=== PATIENT | female | born 1960 | race Caucasian/White ===

== ENCOUNTER 2018-02-18 16:55 | Inpatient (IN) ==
--- NOTE | 2018-02-18 18:18 | Emergency Department Note ---
Disposition Clinical Impression: Upper GI bleed Disposition: Still a Patient Condition: Fair Time of Disposition: 19:03 General Adult HPI - General Chief complaint: ED Recheck/Abnormal Lab/Rx Stated complaint: Needs Blood Transfusion Time Seen by Provider: 02/18/18 17:59 Nursing Notes Reviewed: Yes Vital Signs Reviewed: Yes - History of Present Illness HPI Narrative: 57 year old female was sent to ED for Hb 5.1. Patient states she's been having black stools for 1 month. Patient also complains of difficulty breathing, worse in past 1 week. Shortness of breath is exacerbated by activity. Patient has been taking IBU 600mg TID for bilateral ankle fractures. Admits dizziness with sitting up. Denies abdominal pain, nausea/vomiting, hematuria, hemoptysis, fever/chills, chest pain. Medical history of COPD not oxygen dependent, GERD on omeprazole, HLD, anxi ety/panic attacks, arthritis. Patient does not take blood thinner. Pain Scale: 6 - Related Data Home Medications Medication Instructions Recorded Confirmed ALPRAZolam [Xanax 0.5 MG Tablet] 0.5 mg PO TID PRN 08/06/17 11/12/17 Albuterol Sulfate [Ventolin Hfa] 2 puff IH Q4H PRN 08/06/17 11/12/17 Atorvastatin Calcium [Lipitor] 20 mg PO DAILY 08/06/17 11/12/17 Latanoprost [Xalatan] 1 drop BOTH EYES HS 08/06/17 11/12/17 Loratadine [Claritin] 10 mg PO DAILY 08/06/17 11/12/17 Omeprazole [PriLOSEC] 20 mg PO DAILY 08/06/17 11/12/17 Tiotropium [place] [Spiriva 2 puff IH DAILY 08/06/17 11/12/17 Respimat] Montelukast [Singulair] 10 mg PO HS 11/12/17 11/12/17 Previous Rx's Medication Instructions Recorded Doxycycline 100 mg PO ONCE #14 capsule 11/12/17 Ondansetron ODT [Zofran ODT] 4 mg SL Q8HR PRN #15 tab.rapdis 11/12/17 Oxycodone HCl/Acetaminophen 1 each PO Q4H PRN 5 Days #30 tablet 11/12/17 [Percocet 5-325 mg Tablet] Rivaroxaban [Xarelto] 10 mg PO DAILY #20 tablet 11/12/17 Allergies Allergy/AdvReac Type Severity Reaction Status Date / Time No Known Allergies Allergy Verified 11/12/17 13:51 Constitutional: Denies: fever, chills Eyes: Denies: eye pain, eye discharge ENT ED: Denies: ear pain, throat pain Cardiovascular: Denies: chest pain, palpitations Respiratory: Reports: cough, dyspnea Gastrointestinal: Denies: abdominal pain, nausea Genitourinary: Denies: urgency, dysuria Musculoskeletal: Denies: back pain, neck pain Integumentary: Denies: rash, abrasion Neurological: Denies: headache, weakness Past Medical History - Past Medical History Medical history: Reports: arthritis, seizures, other Surgical history: Reports: cholecystectomy, colectomy, hysterectomy, DAMARIS/BSO, other Psychiatric history: Reports: no psych history - Social History Smoking Status: Current every day smoker Smokeless Tobacco Status: No Alcohol use: Reports: none Drug use: Reports: marijuana Physical Exam - General General appearance: alert, in no apparent distress - Head Head exam: atraumatic, normocephalic - Eye Eye exam: Present: PERRL, EOMI. Absent: scleral icterus, conjunctival injection - ENT ENT exam: normal oropharynx, mucous membranes moist - Neck Neck exam: Present: normal inspection - Chest Chest inspection: Present: normal inspection, symmetric chest wall rise - Respiratory Respiratory exam: Present: normal lung sounds bilaterally. Absent: respiratory distress - Cardiovascular Cardiovascular exam: Present: regular rate, normal rhythm - Abdominal Exam Abdominal exam: Present: soft, Non-Tender, normal bowel sounds. Absent: distention, guarding, rebound, rigidity - Extremities Exam Extremities exam: Present: normal inspection. Absent: tenderness, pedal edema, joint swelling - Neurological Exam Neurological exam: Present: alert, oriented X3 - Skin Skin exam: Present: warm, dry, intact, pallor Course Course Narrative: 57 year old female presents for black stools for 1 month and Hb 5.1. Associated symptoms of dyspnea on exertion and dizziness with sitting up. Been taking IBU 600mg TID for bilateral ankle fracture pain. Patient is alert and oriented. Patient is tachycardic at 109. Other vitals are WNL. On exam, patient appears pale and weak. Abdominal is soft and nontender. There are very mild bibibasilar expiratory wheezes on lung auscultation. Will check labwork, type and screen, and hemoccult. Will provide 2 units RBC and start PPI. - Reevaluation(s) Reevaluation #1: Will sign out to night team. Time: 19:03 Vital Signs Temperature 98.3 F 02/18/18 17:19 Pulse Rate 109 02/18/18 17:19 Respiratory Rate 20 02/18/18 17:19 Blood Pressure 101/69 02/18/18 17:19 O2 Sat by Pulse Oximetry 100 02/18/18 17:19 Temperature 98.3 F 02/18/18 17:19 Pulse Rate 109 02/18/18 17:19 Respiratory Rate 20 02/18/18 17:19 Blood Pressure 101/69 02/18/18 17:19 O2 Sat by Pulse Oximetry 100 02/18/18 17:19 Oxygen Delivery Oxygen Delivery Room Air Medical Decision Making - EKG Data EKG #1 EKG attestation: Yes I reviewed and interpreted this EKG. EKG results narrative: EKG 02/18/18 18:08. Sinus rhythm. Heart rate 104. No ST segment elevation or dep ression. No significant change from prior EKG 11/06/13.
[2018-02-18] MEDS ORDERED: Pantoprazole 40 MG VIAL IVP ONE (18:27)
[2018-02-18] MEDS ORDERED: *HR* Morphine 2 MG/ML SYRINGE IVP ONE (18:34)
--- NOTE | 2018-02-18 18:43 | Emergency Department Note ---
START Narrative - START START: I, Aquiles Webb, examined this patient and my medical decision-making was reviewed with the [employer]ARE[employer]ING SUPERVISOR/PA/Advanced Practice Nurse/Resident Physician. I agree with the documented findings, disposition and treatment plan as described except to the extent set forth below. 57-year-old female presents emergency Department with concerns of anemia. Patient has been having melena over the past few weeks, has been taking ibuprofen at home for bilateral ankle pain. Patient has become short of breath with exertion. Hemoglobin was 5.1 on palpation testing. We will obtain laboratory evaluation, type and screen and provide transfusion. Patient will likely be admitted to the hospital for further evaluation.
[2018-02-18 19:19] LABS: Basophils % 0.1 %; Eosinophils # 0.5 K/mcL (0.0-0.6); Eosinophils % 4.6 %; Hematocrit 16.4 % (35.3-44.9); Immature Granulocytes % 1.1 % (0-4); Lymphocytes # 2.5 K/mcL (0.6-4.6); Lymphocytes % 22.4 %; Mean Corpuscular HGB Conc 28.7 g/dL (31.6-35.5); Mean Corpuscular Volume 76.6 fL (83.0-100.0); Monocytes % 7.7 %; Neutrophils # 7.1 K/mcL (1.6-8.9); Nucleated Red Blood Cells 0.5 /100 WBC (0); Platelet Count 453 K/mcL (140-400); Red Blood Count 2.14 M/mcL (3.82-4.97); Red Cell Distribution Width 18.5 % (11.5-14.5); Segmented Neutrophils % 64.1 %
[2018-02-18 19:20] LABS: Monocytes # 0.9 K/mcL (0.0-1.3)
[2018-02-18 19:24] LABS: Hemoglobin 4.7 g/dL (11.5-15.4)
[2018-02-18 19:27] LABS: Prothrombin Time 10.8 Seconds (9.4-12.1)
[2018-02-18] MEDS: Pantoprazole 40 MG VIAL IVP ONE ×2 (19:33→19:40)
[2018-02-18] MEDS: Pantoprazole 40 MG in 0.9 % Sodium Chloride Mini Bag 100 ML IVC SCH (19:33)
[2018-02-18 19:35] LABS: Calcium 8.7 mg/dL (8.6-10.3); Potassium 4.1 mEq/L (3.5-5.1)
[2018-02-18 19:41] LABS: Hypochromasia Present (Not Present)
--- NOTE | 2018-02-18 19:43 | Emergency Department Note ---
Disposition Clinical Impression: Upper GI bleed, Anemia due to GI blood loss Disposition: Admitted As Inpatient Condition: Fair Referrals: Cally Orr [Primary Care Provider] - Forms: ED Satisfaction Letter Time of Disposition: 20:33 General Adult HPI - General Chief complaint: ED Recheck/Abnormal Lab/Rx Stated complaint: Needs Blood Transfusion Time Seen by Provider: 02/18/18 17:59 Source: patient Limitations: no limitations Nursing Notes Reviewed: Yes Vital Signs Reviewed: Yes - History of Present Illness HPI Narrative: Patient was signed out to me by daytime physicians Dr. Orr and Dr. Webb pending lab results and final disposition. Please see their note for further details. Pain Scale: 0 - Related Data Home Medications Medication Instructions Recorded Confirmed ALPRAZolam [Xanax 0.5 MG Tablet] 0.5 mg PO BID 08/06/17 02/18/18 Albuterol Sulfate [Ventolin Hfa] 2 puff IH Q4H PRN 08/06/17 02/18/18 Atorvastatin Calcium [Lipitor] 20 mg PO DAILY 08/06/17 02/18/18 Loratadine [Claritin] 10 mg PO DAILY 08/06/17 02/18/18 Omeprazole [PriLOSEC] 20 mg PO DAILY 08/06/17 02/18/18 Tiotropium [place] [Spiriva 2 puff IH DAILY 08/06/17 02/18/18 Respimat] Montelukast [Singulair] 10 mg PO HS 11/12/17 02/18/18 ALPRAZolam [Xanax 0.5 MG Tablet] 1 mg PO HS 02/18/18 02/18/18 PARoxetine HCl [Paroxetine HCl] 20 mg PO DAILY 02/18/18 02/18/18 Allergies Allergy/AdvReac Type Severity Reaction Status Date / Time No Known Allergies Allergy Verified 11/12/17 13:51 All systems ED: reviewed and negative except as stated. Constitutional: Denies: fever, chills Eyes: Denies: eye pain, eye discharge ENT ED: Denies: ear pain, throat pain Cardiovascular: Denies: chest pain, palpitations Respiratory: Reports: cough, dyspnea Gastrointestinal: Denies: abdominal pain, nausea Genitourinary: Denies: urgency, dysuria Musculoskeletal: Denies: back pain, neck pain Integumentary: Denies: rash, abrasion Neurological: Denies: headache, weakness Past Medical History - Past Medical History Medical history: Reports: arthritis, seizures, other Surgical history: Reports: cholecystectomy, colectomy, hysterectomy, DAMARIS/BSO, other Psychiatric history: Reports: no psych history - Social History Smoking Status: Current every day smoker Smokeless Tobacco Status: No Alcohol use: Reports: none Drug use: Reports: marijuana Physical Exam - General Limitations: no limitations General appearance: alert, in no apparent distress Course Course Narrative: Patient was signed out to me by daytime physicians Dr. Orr and Dr. Webb pending lab results and final disposition. Please see their note for further details. Anu is a 57-year-old female who presents emergency department with a hemoglobin reportedly 5.1. She states she is been experiencing black stools for about a month. She is denying any other complaints such as abdominal pain nausea vomiting. She admits to taking ibuprofen overdose on a daily basis for her arthritis recently has been taking 600 mg ibuprofen 3 times a day due to her recent ankle fracture. She admits to dyspnea on exertion. She denies any syncope but does reports some lightheadedness. Denies any chest pain. She denies a history of cardiac ischemic disease. No history of blood transfusion. No other recent illnesses. On evaluation here patient appears in no acute distress. He is mildly tachycardic 109. She appears very pale with pale conjunctiva. Her stool hemoccult is positive and Hgb here is 4.7. At this time patient will receive 2 units blood transfusion for G.I. bleed anemia and will be admitted for further evaluation and treatment. She has been initiated on PPI infusion therapy. Patient gave informed consent for blood transfusion ricin benefits were discussed with the patient. - Consultations Consultation #1: Spoke with on-call hospitalist denise Bolton to admit for GI bleed anemia. No further orders at this time Time: 21:01 Vital Signs Temperature 98.3 F 02/18/18 17:19 Pulse Rate 109 02/18/18 17:19 Respiratory Rate 20 02/18/18 17:19 Blood Pressure 101/69 02/18/18 17:19 O2 Sat by Pulse Oximetry 100 02/18/18 17:19 Temperature 98.7 F 02/18/18 20:50 Pulse Rate 100 02/18/18 20:50 Respiratory Rate 15 11/06/18 20:50 Blood Pressure 101/75 02/18/18 20:50 O2 Sat by Pulse Oximetry 97 02/18/18 20:14 Oxygen Delivery Oxygen Delivery Room Air Medical Decision Making - MDM Narrative Medical decision making narrative: Patient was discussed with my attending physician who agrees with ED management and final disposition. They independently evaluated the patient. Please refer to their attestation to this encounter for additional information. This note was generated by [employer] voice recognition software and as a result grammatical or spelling errors may occur using this program. - Medical Records Medical records reviewed: Yes I reviewed the patient's medical records. - Lab Data Lab results reviewed: Yes I reviewed the patient's lab results. Result diagrams: 02/18/18 19:02 02/18/18 19:02 Lab Results 02/18/18 02/18/18 02/18/18 Range/Units 19:02 19:02 19:02 WBC 11.0 (4.3-11.1) K/mcL RBC 2.14 L (3.82-4.97) M/mcL Hgb 4.7 L* (11.5-15.4) g/dL Hct 16.4 L (35.3-44.9) % MCV 76.6 L (83.0-100.0) fL MCH 22.0 L (28.0-33.3) pg MCHC 28.7 L (31.6-35.5) g/dL RDW 18.5 H (11.5-14.5) % Plt Count 453 H (140-400) K/mcL MPV 11.0 (9.4-12.4) fL Immature Gran % 1.1 (0-4) % Seg Neutrophils % 64.1 % Lymphocytes % 22.4 % Monocytes % 7.7 % Eosinophils % 4.6 % Basophils % 0.1 % Neutrophils # 7.1 (1.6-8.9) K/mcL Lymphocytes # 2.5 (0.6-4.6) K/mcL Monocytes # 0.9 (0.0-1.3) K/mcL Eosinophils # 0.5 (0.0-0.6) K/mcL Basophils # 0.0 (0.0-0.2) K/mcL Nucleated RBCs/100 WBC 0.5 H (0) /100 WBC Hypochromasia Present A (Not Present) PT (9.4-12.1) Seconds INR Sodium 136 (136-145) mEq/L Potassium 4.1 (3.5-5.1) mEq/L Chloride 107 (98-107) mEq/L Carbon Dioxide 20 L (23-29) mEq/L BUN 16 (6-20) mg/dL Creatinine 1.15 (0.60-1.20) mg/dL Est GFR ( Amer) 59 L (> 60) Est GFR (Non-Af Amer) 48 L (> 60) BUN/Creatinine Ratio 14 (6-26) Glucose 101 (70-105) mg/dL Calculated Osmolality 283 (280-300) Calcium 8.7 (8.6-10.3) mg/dL Stool Occult Bld Scrn (Negative) Blood Type A POSITIVE Antibody Screen NEGATIVE Crossmatch See Detail 02/18/18 02/18/18 Range/Units 19:02 19:02 WBC (4.3-11.1) K/mcL RBC (3.82-4.97) M/mcL Hgb (11.5-15.4) g/dL Hct (35.3-44.9) % MCV (83.0-100.0) fL MCH (28.0-33.3) pg MCHC (31.6-35.5) g/dL RDW (11.5-14.5) % Plt Count (140-400) K/mcL MPV (9.4-12.4) fL Immature Gran % (0-4) % Seg Neutrophils % % Lymphocytes % % Monocytes % % Eosinophils % % Basophils % % Neutrophils # (1.6-8.9) K/mcL Lymphocytes # (0.6-4.6) K/mcL Monocytes # (0.0-1.3) K/mcL Eosinophils # (0.0-0.6) K/mcL Basophils # (0.0-0.2) K/mcL Nucleated RBCs/100 WBC (0) /100 WBC Hypochromasia (Not Present) PT 10.8 (9.4-12.1) Seconds INR 1.0 Sodium (136-145) mEq/L Potassium (3.5-5.1) mEq/L Chloride (98-107) mEq/L Carbon Dioxide (23-29) mEq/L BUN (6-20) mg/dL Creatinine (0.60-1.20) mg/dL Est GFR ( Amer) (> 60) Est GFR (Non-Af Amer) (> 60) BUN/Creatinine Ratio (6-26) Glucose (70-105) mg/dL Calculated Osmolality (280-300) Calcium (8.6-10.3) mg/dL Stool Occult Bld Scrn Positive A (Negative) Blood Type Antibody Screen Crossmatch - EKG Data EKG #1 EKG attestation: Yes I reviewed and interpreted this EKG. EKG results narrative: EKG performed 1808 sinus tachycardia 104 beats permitted with a PVC, normal axis, good R wave progression, no ST elevation or depression, Q waves seen in t he inferior leads that appears consistent with prior EKG. No acute ischemic changes.
--- NOTE | 2018-02-18 19:47 | Emergency Department Note ---
Disposition Clinical Impression: Upper GI bleed, Anemia due to GI blood loss Disposition: Admitted As Inpatient Condition: Fair Referrals: Cally Orr [Primary Care Provider] - Forms: ED Satisfaction Letter General Adult HPI - General Chief complaint: ED Recheck/Abnormal Lab/Rx Stated complaint: Needs Blood Transfusion Time Seen by Provider: 02/18/18 17:59 Source: patient Limitations: no limitations Nursing Notes Reviewed: Yes Vital Signs Reviewed: Yes - History of Present Illness Pain Scale: 0 - Related Data Home Medications Medication Instructions Recorded Confirmed ALPRAZolam [Xanax 0.5 MG Tablet] 0.5 mg PO BID 08/06/17 02/18/18 Albuterol Sulfate [Ventolin Hfa] 2 puff IH Q4H PRN 08/06/17 02/18/18 Atorvastatin [place] [Lipitor] 20 mg PO DAILY 08/06/17 02/18/18 Loratadine [Claritin] 10 mg PO DAILY 08/06/17 02/18/18 Omeprazole [PriLOSEC] 20 mg PO DAILY 08/06/17 02/18/18 Tiotropium [place] [Spiriva 2 puff IH DAILY 08/06/17 02/18/18 Respimat] Montelukast [Singulair] 10 mg PO HS 11/12/17 02/18/18 ALPRAZolam [Xanax 0.5 MG Tablet] 1 mg PO HS 02/18/18 02/18/18 PARoxetine HCl [Paroxetine HCl] 20 mg PO DAILY 02/18/18 02/18/18 Allergies Allergy/AdvReac Type Severity Reaction Status Date / Time No Known Allergies Allergy Verified 11/12/17 13:51 Constitutional: Denies: fever, chills Eyes: Denies: eye pain, eye discharge ENT ED: Denies: ear pain, throat pain Cardiovascular: Denies: chest pain, palpitations Respiratory: Reports: cough, dyspnea Gastrointestinal: Denies: abdominal pain, nausea Genitourinary: Denies: urgency, dysuria Musculoskeletal: Denies: back pain, neck pain Integumentary: Denies: rash, abrasion Neurological: Denies: headache, weakness Past Medical History - Past Medical History Medical history: Reports: arthritis, seizures, other Surgical history: Reports: cholecystectomy, colectomy, hysterectomy, DAMARIS/BSO, other Psychiatric history: Reports: no psych history - Social History Smoking Status: Current every day smoker Smokeless Tobacco Status: No Alcohol use: Reports: none Drug use: Reports: marijuana Physical Exam - General Limitations: no limitations General appearance: alert, in no apparent distress Course Vital Signs Temperature 98.3 F 02/18/18 17:19 Pulse Rate 109 02/18/18 17:19 Respiratory Rate 20 02/18/18 17:19 Blood Pressure 101/69 02/18/18 17:19 O2 Sat by Pulse Oximetry 100 02/18/18 17:19 Temperature 98.7 F 02/18/18 20:50 Pulse Rate 100 02/18/18 20:50 Respiratory Rate 15 02/18/18 20:50 Blood Pressure 101/75 02/18/18 20:50 O2 Sat by Pulse Oximetry 97 02/18/18 20:14 Oxygen Delivery Oxygen Delivery Room Air Medical Decision Making - Lab Data Result diagrams: 02/18/18 19:02 02/18/18 19:02 Lab Results 02/18/18 02/18/18 02/18/18 Range/Units 19:02 19:02 19:02 WBC 11.0 (4.3-11.1) K/mcL RBC 2.14 L (3.82-4.97) M/mcL Hgb 4.7 L* (11.5-15.4) g/dL Hct 16.4 L (35.3-44.9) % MCV 76.6 L (83.0-100.0) fL MCH 22.0 L (28.0-33.3) pg MCHC 28.7 L (31.6-35.5) g/dL RDW 18.5 H (11.5-14.5) % Plt Count 453 H (140-400) K/mcL MPV 11.0 (9.4-12.4) fL Immature Gran % 1.1 (0-4) % Seg Neutrophils % 64.1 % Lymphocytes % 22.4 % Monocytes % 7.7 % Eosinophils % 4.6 % Basophils % 0.1 % Neutrophils # 7.1 (1.6-8.9) K/mcL Lymphocytes # 2.5 (0.6-4.6) K/mcL Monocytes # 0.9 (0.0-1.3) K/mcL Eosinophils # 0.5 (0.0-0.6) K/mcL Basophils # 0.0 (0.0-0.2) K/mcL Nucleated RBCs/100 WBC 0.5 H (0) /100 WBC Hypochromasia Present A (Not Present) PT (9.4-12.1) Seconds INR Sodium 136 (136-145) mEq/L Potassium 4.1 (3.5-5.1) mEq/L Chloride 107 (98-107) mEq/L Carbon Dioxide 20 L (23-29) mEq/L BUN 16 (6-20) mg/dL Creatinine 1.15 (0.60-1.20) mg/dL Est GFR ( Amer) 59 L (> 60) Est GFR (Non-Af Amer) 48 L (> 60) BUN/Creatinine Ratio 14 (6-26) Glucose 101 (70-105) mg/dL Calculated Osmolality 283 (280-300) Calcium 8.7 (8.6-10.3) mg/dL Stool Occult Bld Scrn (Negative) Blood Type A POSITIVE Antibody Screen NEGATIVE Crossmatch See Detail 02/18/18 02/18/18 Range/Units 19:02 19:02 WBC (4.3-11.1) K/mcL RBC (3.82-4.97) M/mcL Hgb (11.5-15.4) g/dL Hct (35.3-44.9) % MCV (83.0-100.0) fL MCH (28.0-33.3) pg MCHC (31.6-35.5) g/dL RDW (11.5-14.5) % Plt Count (140-400) K/mcL MPV (9.4-12.4) fL Immature Gran % (0-4) % Seg Neutrophils % % Lymphocytes % % Monocytes % % Eosinophils % % Basophils % % Neutrophils # (1.6-8.9) K/mcL Lymphocytes # (0.6-4.6) K/mcL Monocytes # (0.0-1.3) K/mcL Eosinophils # (0.0-0.6) K/mcL Basophils # (0.0-0.2) K/mcL Nucleated RBCs/100 WBC (0) /100 WBC Hypochromasia (Not Present) PT 10.8 (9.4-12.1) Seconds INR 1.0 Sodium (136-145) mEq/L Potassium (3.5-5.1) mEq/L Chloride (98-107) mEq/L Carbon Dioxide (23-29) mEq/L BUN (6-20) mg/dL Creatinine (0.60-1.20) mg/dL Est GFR ( Amer) (> 60) Est GFR (Non-Af Amer) (> 60) BUN/Creatinine Ratio (6-26) Glucose (70-105) mg/dL Calculated Osmolality (280-300) Calcium (8.6-10.3) mg/dL Stool Occult Bld Scrn Positive A (Negative) Blood Type Antibody Screen Crossmatch Critical Care Time Critical Care Time: Yes Total Critical Care Time: 35 Attestation: Critical care performed: Time is exclusive of separately billable procedures. Time includes: direct patient care, patient reassessment, coordination of patient care, interpretation of data (laboratory data, radiology data, and respiratory data), review of patient's medical records, medical consultation and documentation of patient care. Procedures included in critical care time: Procedures excluded from critical care time: Attestation Statement - Attestation Attestation: I, Paulo Nettles MD, personally evaluated this patient and discussed their management with the resident physician. I reviewed the resident's note and agree with the documented findings, medical decision making, and plan of care. This patient was signed out at shift change from Dr. Orr and Dr. Aquiles Webb. Please refer to their notes for complete details of the history and physical examination. Patient is a 57-year-old female who presented to the emergency department for low hemoglobin. Patient complains of black stools and intermittent diarrhea for more than a month prior to arrival. She saw her primary care provider today and had lab work and was called at home and advised that her hemoglobin was 5.1 and she needed to come to the emergency department and blood transfusion. She denies any abdominal pain. No vomiting. She has noticed some increased shortness of breath with exertion. She has a history of COPD and asthma but is not on oxygen. Some mild dizziness with standing. No syncope. On examination patient is a well-developed well-nourished female in no acute distress. She is alert and oriented 3. There is no cyanosis or diaphoresis. Patient is pale. Breath sounds are clear and equal bilaterally. Heart regular with a slight tachycardia. Abdomen is soft and nontender with normal bowel sounds. Labs reviewed. Hemoglobin 4.7. Stool positive for occult blood. Type and crossmatch previously ordered. Transfusion initiated in the emergency department. The hospitalist, Dr. Negrete, was consulted and accepted admission of the patie nt.
[2018-02-18] MEDS ORDERED: *HR* Nalbuphine 10 MG/ML AMPUL IM PRN (22:11)
[2018-02-18] MEDS ORDERED: Ipratropium/Albuterol Neb 3 ML IH PRN (22:11)
[2018-02-18] MEDS ORDERED: 0.9 % Sodium Chloride 250 ML ONE (22:47)
--- NOTE | 2018-02-18 23:05 | Internal Med History&Physical ---
Date of Encounter: 02/18/18 Time of Encounter: 23:03 Internal Medicine - H&P: HPI Chief complaint: Black stool Admitted From: Home Plans for Post Hospital Care: Home History of present illness: Anu Menon is a 57-year-old woman active smoker with a history of asthma/COPD and arthritis on chronic NSAIDs who underwent ORIF on 11/12/17 due to a right trimalleolar ankle fracture. She states she has been taking 800 mg of ibuprofen at least 3 times a day since then and she took a short 10 day course of rivaroxaban after her ankle surgery. She presents to the emergency room upon referral from her PCP due to a low hemoglobin. She states that for the past 1 month she has noticed black tarry stool intercalated with episodes of diarrhea. She has also become significantly more fatigued and feels cold all the time. She denies abdominal pain, chest pain, nausea or vomiting, hematemesis or lon bright red blood per rectum. She says she was told her hemoglobin was 5.1 however on recheck here in the emergency room it was 4.7. Stool occult blood testing was positive. She was started on fluids pending blood transfusion. At this time she reports feeling generally well other than feeling cold but has no active complaints. She says she has never received a blood transfusion or had a GI bleed in the past. PMHx: As indicated above. SHx: Active Smoker, denies current illicit drug use. FHx: Heart disease in father. Review of systems: All systems reviewed and negative except as listed above in the HPI. Past Med Surg Social Fam HX - Past Medical History Medical history: arthritis, asthma, COPD, GERD, hyperlipidemia, seizures, other Additional medical history: last seizure- 5-6 years ago Psychiatric history: anxiety - Past Surgical History Surgical History: cholecystectomy, colectomy, hysterectomy, DAMARIS/BSO, other Additional surgical history: 2018Bladder suspension, [id number], cyst of kidney ruptured 2007 - Social History Smoking Status: Current every day smoker Packs per day: 1/2 Smokeless Tobacco Status: No Alcohol use: none Drug use: marijuana Internal Medicine - H&P: Meds RX: ALPRAZolam [Xanax 0.5 MG Tablet] 0.5 mg PO BID 08/06/17 [History] RX: Albuterol Sulfate [Ventolin Hfa] 2 puff IH Q4H PRN 08/06/17 [History] RX: Atorvastatin Calcium [Lipitor] 20 mg PO DAILY 08/06/17 [History] RX: Loratadine [Claritin] 10 mg PO DAILY 08/06/17 [History] RX: Omeprazole [PriLOSEC] 20 mg PO DAILY 08/06/17 [History] RX: Tiotropium [place] [Spiriva Respimat] 2 puff IH DAILY 08/06/17 [History] Montelukast [Singulair] 10 mg PO HS 11/12/17 [History] PARoxetine HCl [Paroxetine HCl] 20 mg PO DAILY 02/18/18 [History] RX: ALPRAZolam [Xanax 0.5 MG Tablet] 1 mg PO HS 02/18/18 [History] Allergy/AdvReac Type Severity Reaction Status Date / Time No Known Allergies Allergy Verified 11/12/17 13:51 All Systems PM: A 10-system review of systems was performed and is negative for pertinent findings except as documented above in the HPI. - Constitutional Vitals: Temp Pulse Resp BP Pulse Ox 98.1 F 95 16 106/80 100 02/18/18 22:59 02/18/18 22:59 02/18/18 22:59 02/18/18 22:59 02/18/18 22:32 Exam: Vitals: Reviewed General: Pleasant and well-developed in no acute distress Skin: Pale, cold. HEENT: Moist mucous membranes. Positive conjunctivae pallor. Neck: No lymphadenopathy. No JVD. No carotid bruits. No palpable thyroid. Chest: Normal thoracic expansion. Normal breath sounds. Clear to auscultation. Heart: Normal S1 & S2; rhythmic. No rubs or murmurs. Abdomen: Non-distended, soft and non-tender to palpation. No peritoneal reaction. Extremities: Right leg in a cast. Left leg with no edema. Neurological: Awake, alert and oriented to person, place and time. No focal deficits. Psych: Affect appropriate. Internal Med - H&P Results - Labs CBC & Chem 7: 02/18/18 19:02 02/18/18 19:02 Labs: Short CBC 02/18/18 Range/Units 19:02 WBC 11.0 (4.3-11.1) K/mcL Hgb 4.7 L* (11.5-15.4) g/dL Hct 16.4 L (35.3-44.9) % Plt Count 453 H (140-400) K/mcL Neutrophils # 7.1 (1.6-8.9) K/mcL BMP 02/18/18 19:02 Sodium 136 Potassium 4.1 Chloride 107 Carbon Dioxide 20 L BUN 16 Creatinine 1.15 Glucose 101 Calcium 8.7 - Assessment and plan (1) Symptomatic anemia Current Visit: Yes Status: Acute Assessment and plan: Evidenced by debilitating fatigue and weakness with reduced exercise tolerance. Will transfuse 2U pRBC to start with and recheck Hgb in the morning. Goal >7g/dl at least. (2) Upper GI bleed Current Visit: Yes Status: Acute Assessment and plan: Concern for hemorrhagic gastritis or ulcer disease induced by high dose and chronic use of NSAIDs. Will place on IV PPI and consult GI. NPO for now. (3) COPD (chronic obstructive pulmonary disease) Current Visit: Yes Status: Chronic Assessment and plan: Has mild symptoms present at this time. Will place on nebulizer therapy as needed. Qualifiers: COPD type: unspecified COPD Qualified Code(s): J44.9 - Chronic obstructive pulmonary disease, unspecified (4) Ankle fracture Current Visit: Yes Status: Chronic Assessment and plan: F/u care per Ortho as outptient. Qualifiers: Encounter type: subsequent encounter Fracture type: closed Laterality: right Fracture healing: with routine healing Qualified Code(s): S82.891D - Other fracture of right lower leg, subsequent encounter for closed fracture with routine healing (5) DVT prophylaxis Current Visit: Yes Status: Acute Assessment and plan: Anti-embolic stockings. - Time Spent With Patient Total time spent is greater than 50% in coordination of care (as documented) at patient's floor/unit and/or counseling patient: Greater than 35 minutes
[2018-02-19] MEDS: ALPRAZolam 0.5 MG TABLET PO SCH ×4 (00:22→21:35)
[2018-02-19] MEDS: Pantoprazole 40 MG in 0.9 % Sodium Chloride Mini Bag 100 ML IVC SCH ×3 (02:47→06:56)
[2018-02-19 03:50] LABS: Basophils % 0.5 %; Eosinophils # 0.5 K/mcL (0.0-0.6); Eosinophils % 5.6 %; Hematocrit 26.6 % (35.3-44.9); Immature Granulocytes % 1.1 % (0-4); Lymphocytes % 23.9 %; Mean Corpuscular HGB Conc 30.5 g/dL (31.6-35.5); Mean Corpuscular Hemoglobin 24.1 pg (28.0-33.3); Mean Corpuscular Volume 79.2 fL (83.0-100.0); Monocytes # 0.8 K/mcL (0.0-1.3); Monocytes % 9.5 %; Platelet Count 410 K/mcL (140-400); Red Blood Count 3.36 M/mcL (3.82-4.97); Red Cell Distribution Width 17.1 % (11.5-14.5); Segmented Neutrophils % 59.4 %
[2018-02-19 04:02] LABS: Hemoglobin 8.1 g/dL (11.5-15.4)
[2018-02-19] MEDS: OXYCODONE Oral CONC 10 MG/0.5 ML ORAL.SYG SL PRN ×3 (05:23→18:27)
[2018-02-19] MEDS: Pantoprazole 40 MG VIAL IVP SCH ×2 (05:44→16:47)
[2018-02-19] MEDS ORDERED: Tiotropium 18 MCG inhalation IH SCH (09:00)
[2018-02-19 09:02] LABS: Hematocrit 26.4 % (35.3-44.9); Hemoglobin 8.1 g/dL (11.5-15.4)
[2018-02-19 09:19] LABS: BUN/Creatinine Ratio 13 (6-26); Blood Urea Nitrogen 12 mg/dL (6-20); Calcium 8.8 mg/dL (8.6-10.3); Carbon Dioxide 22 mEq/L (23-29); Chloride 113 mEq/L (98-107); Glucose 92 mg/dL (70-105); Osmolality,Calculated 289 (280-300); Potassium 4.2 mEq/L (3.5-5.1); Sodium 140 mEq/L (136-145); eGFR For Non-African Americans > 60 (> 60)
--- NOTE | 2018-02-19 09:19 | Gastroenterology Consult Note ---
Date of Encounter: 02/19/18 Time of Encounter: 09:17 - Assessment and plan (1) Symptomatic anemia Current Visit: Yes Status: Acute Assessment and plan: Patient presents with hemoglobin of 4.7, symptomatic with weakness, lighthead edness, shortness of breath. He feels improved after transfusion of 2 units and hemoglobin has responded well. Microcytic in nature. Concern for chronic GI bleed. Continue to monitor H&H, transfuse for hemoglobin less than 7. We will check iron panel. Continue Protonix 40 mg IV twice a day. (2) Melena Current Visit: Yes Status: Acute Assessment and plan: Concern for GI bleeding. Upper versus right-sided colonic lesion. No BUN elevation which would go against an upper GI bleed. Patient has family history of colon cancer in her father that was diagnosed in the mid 50s so there is concern for right-sided colonic lesion. Chronic use of NSAID therapy could also be contributing. Plan for colonoscopy and EGD tomorrow. Clear liquid diets today, nothing by mouth at midnight, bowel prep this evening, tap water enemas if needed tomorrow morning until clear. - Time Spent With Patient Total time spent is greater than 50% in coordination of care (as documented) at patient's floor/unit and/or counseling patient: GI History of Present Illness - Data of Consult Patient: new to practice Consult date: 02/19/18 Requesting Physician: Donna Pabon - Consult Narrative Reason for consult: Melena, anemia History of present illness: Ms. Menon is a 57 year old female with history of COPD, anxiety, arthritis presents with weakness, dizziness, and melena. Patient states that she has been feeling progressively weak and dizzy for the last month or so. She describes this as a lightheaded feeling. She denies any syncopal episodes or passing out. She states that about a month ago she had several days of diarrhea and then after this her stools became formed but she noted that they were black for several days. Shortly thereafter she began to have several days of diarrhea again and again the diarrhea resolved but she had another episode of several days of black formed stools just prior to arrival. She also reports progressively worsening shortness of breath. She states she has never had anything like this before. She denies abdominal pain, nausea, vomiting,, fever, chills, chest pain, hematemesis, hematochezia. She states that she has been taking ibuprofen 800 mg 3 times a day for several years. She denies any aspirin use. She states she took Xarelto for approximately 5 days after surgery for her ankle fracture at the end of October. She denies ever having upper and lower endoscopy before. She does report that her father was diagnosed with colon cancer in his mid 50s and of a heart attack at age 65. Colonoscopy: Never EGD: Never Past Med Surg Social Fam HX - Past Medical History Medical history: arthritis, asthma, COPD, GERD, hyperlipidemia, seizures, other Additional medical history: last seizure- 5-6 years ago Psychiatric history: anxiety - Past Surgical History Surgical History: cholecystectomy, colectomy, hysterectomy, DAMARIS/BSO, other Additional surgical history: 2018Bladder suspension, [id number], cyst of kidney ruptured 2007 - Social History Smoking Status: Current every day smoker Packs per day: 1/2 Smokeless Tobacco Status: No Alcohol use: none Drug use: marijuana - Family History Father Living Status: Age at : 65 Cause of : [place] Hx Family Cancer: Yes (Colon cancer dx in mid 50s) Hx Family GI Disorders: Yes (Colon cancer dx in mid 50s) All systems PM: reviewed and no additional remarkable complaints except as stated - Constitutional Vitals: Temp Pulse Resp BP Pulse Ox 97.9 F 96 15 103/72 96 02/19/18 06:56 02/19/18 06:56 02/19/18 06:56 02/19/18 06:56 02/19/18 06:56 General appearance: Present: A&O X 3, pleasant, no acute distress - Head Head exam: Present: atraumatic, normal inspection, normocephalic - Eye Eye exam: Present: EOMI, PERRL - ENT ENT exam: Present: mucous membranes moist - Neck Neck exam general surgery: Present: full ROM - Respiratory Respiratory exam: Present: CTAB. Absent: rales, rhonchi, wheezes - Cardiovascular Cardiovascular exam: Present: RRR. Absent: gallop, rubs, systolic murmur - GI/Abdominal GI/Abdominal exam: Present: normal bowel sounds, soft, no peritoneal signs. Absent: distended, hepatomegaly, rigid, splenomegaly, tenderness - Extremities Exam Extremities exam: Present: warm. Absent: pedal edema, tenderness - Psychiatric Psychiatric exam: Present: normal affect, normal mood - Skin Skin exam: Present: dry, intact, pallor (mild), warm Results - Labs CBC & Chem 7: 02/19/18 08:46 02/18/18 19:02 Labs: Last Result Calcium 8.7 mg/dL (8.6-10.3) 02/18/18 19:02 Entire Visit Hgb 8.1 g/dL (11.5-15.4) L 02/19/18 08:46 Hct 26.4 % (35.3-44.9) L 02/19/18 08:46 PT 10.8 Seconds (9.4-12.1) 02/18/18 19:02 - ABG ABG results: PT/INR, D-dimer PT 10.8 Seconds (9.4-12.1) 02/18/18 19:02 Consult Discharge Plan - Plan Referrals: Cally Orr [Primary Care Provider] -
[2018-02-19 09:21] LABS: Prothrombin Time 11.4 Seconds (9.4-12.1)
--- NOTE | 2018-02-19 09:36 | Internal Med Progress Note ---
Hospitalist Progress Note - Encounter Date of Encounter: 02/19/18 Time of Encounter: 09:00 - Exam Vitals: Temp Pulse Resp BP Pulse Ox 97.9 F 96 15 103/72 96 02/19/18 06:56 02/19/18 06:56 02/19/18 06:56 02/19/18 06:56 02/19/18 06:56 Exam: General: Pleasant and well-developed in no acute distress Skin: Pale, cold. HEENT: Moist mucous membranes. Positive conjunctivae pallor. Neck: No lymphadenopathy. No JVD. No carotid bruits. No palpable thyroid. Chest: Normal thoracic expansion. Normal breath sounds. Clear to auscultation. Heart: Normal S1 & S2; rhythmic. No rubs or murmurs. Abdomen: Non-distended, soft and non-tender to palpation. No peritoneal reaction. Extremities: Right leg in a cast. Left leg with no edema. Neurological: Awake, alert and oriented to person, place and time. No focal de ficits. Psych: Affect appropriate. - Assessment and Plan (1) Symptomatic anemia Current Visit: Yes Status: Acute Assessment and Plan: Came in with SOB and fatigue. Likely 2/2 to upper GI bleed Transfused 2units PRBC overnight and hemoglobin responded appropriately. Cotniue IV protonix GI following and plan for endoscopy in am. NPO from midnight (2) Upper GI bleed Current Visit: Yes Status: Acute Assessment and Plan: Concern for hemorrhagic gastritis or ulcer disease induced by high dose and chronic use of NSAIDs. Will place on IV PPI. s/p PRBC transfusion. GI following (3) Ankle fracture Current Visit: Yes Status: Chronic Assessment and Plan: F/u care per Ortho as outpatient. (4) COPD (chronic obstructive pulmonary disease) Current Visit: Yes Status: Chronic Assessment and Plan: Nebs PRN. No acute exacerbation (5) DVT prophylaxis Current Visit: Yes Status: Acute Assessment and Plan: Anti-embolic stockings. - Time Spent with Patient Total time spent is greater than 50% in coordination of care (as documented) at patient's floor/unit and/or counseling patient: Internal Medicine: Result - Labs CBC & Chem 7: 02/19/18 14:41 02/19/18 08:46 Labs: Short CBC 11/06/18 11/07/18 11/07/18 Range/Units 19:02 03:24 08:46 WBC 11.0 8.4 (4.3-11.1) K/mcL Hgb 4.7 L* 8.1 L D 8.1 L (11.5-15.4) g/dL Hct 16.4 L 26.6 L 26.4 L (35.3-44.9) % Plt Count 453 H 410 H (140-400) K/mcL Neutrophils # 7.1 5.0 (1.6-8.9) K/mcL BMP 02/18/18 02/19/18 19:02 08:46 Sodium 136 140 Potassium 4.1 4.2 Chloride 107 113 H Carbon Dioxide 20 L 22 L BUN 16 12 Creatinine 1.15 0.92 Glucose 101 92 Calcium 8.7 8.8 - ABG Interpretation ABG results: PT/INR, D-dimer PT 11.4 Seconds (9.4-12.1) 02/19/18 08:46 Consult Discharge Plan - Plan Referrals: Cally Orr [Primary Care Provider] - (3) Ankle fracture Qualifiers: Encounter type: subsequent encounter Fracture type: closed Laterality: right Fracture healing: with routine healing Qualified Code(s): S82.891D - Other fracture of right lower leg, subsequent encounter for closed fracture with routine healing (4) COPD (chronic obstructive pulmonary disease) Qualifiers: COPD type: unspecified COPD Qualified Code(s): J44.9 - Chronic obstructive pulmonary disease, unspecified
[2018-02-19] MEDS: Tiotropium 18 MCG inhalation IH SCH (12:16)
[2018-02-19 14:59] LABS: Hematocrit 25.6 % (35.3-44.9); Hemoglobin 7.7 g/dL (11.5-15.4)
--- NOTE | 2018-02-19 16:05 | Electrocardiograph Report ---
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
[2018-02-19] MEDS ORDERED: SODIUM CHLORIDE/NAHCO3/KCL/PEG 4,000 ML SOLN.RECON PO ONE (17:00)
[2018-02-19] MEDS ORDERED: Loratadine 10 MG TABLET PO SCH (18:00)
[2018-02-20 00:30] LABS: Basophils % 0.5 %; Eosinophils # 0.3 K/mcL (0.0-0.6); Eosinophils % 4.9 %; Hematocrit 23.5 % (35.3-44.9); Hemoglobin 7.3 g/dL (11.5-15.4); Immature Granulocytes % 0.5 % (0-4); Lymphocytes # 1.8 K/mcL (0.6-4.6); Lymphocytes % 28.2 %; Mean Corpuscular HGB Conc 31.1 g/dL (31.6-35.5); Mean Corpuscular Hemoglobin 24.4 pg (28.0-33.3); Mean Corpuscular Volume 78.6 fL (83.0-100.0); Mean Platelet Volume 10.5 fL (9.4-12.4); Monocytes # 0.6 K/mcL (0.0-1.3); Neutrophils # 3.5 K/mcL (1.6-8.9); Nucleated Red Blood Cells 0.5 /100 WBC (0); Platelet Count 380 K/mcL (140-400); Red Blood Count 2.99 M/mcL (3.82-4.97); Red Cell Distribution Width 17.6 % (11.5-14.5); Segmented Neutrophils % 55.9 %
[2018-02-20 00:47] LABS: BUN/Creatinine Ratio 12 (6-26); Blood Urea Nitrogen 10 mg/dL (6-20); Calcium 8.2 mg/dL (8.6-10.3); Carbon Dioxide 20 mEq/L (23-29); Chloride 111 mEq/L (98-107); Glucose 92 mg/dL (70-105); Osmolality,Calculated 285 (280-300); Sodium 138 mEq/L (136-145); eGFR For Non-African Americans > 60 (> 60)
[2018-02-20 01:08] LABS: Ferritin 10 ng/mL (10-120); Iron < 10 mcg/dL (50-170); Transferrin 304 mg/dL (203-362)
[2018-02-20] MEDS: Pantoprazole 40 MG VIAL IVP SCH (04:59)
[2018-02-20] MEDS: OXYCODONE Oral CONC 10 MG/0.5 ML ORAL.SYG SL PRN ×2 (05:08→12:12)
[2018-02-20 05:29] LABS: Hematocrit 24.3 % (35.3-44.9); Hemoglobin 7.5 g/dL (11.5-15.4)
[2018-02-20] MEDS: Tiotropium 18 MCG inhalation IH SCH (07:49)
[2018-02-20] MEDS: ALPRAZolam 0.5 MG TABLET PO SCH ×2 (09:58→16:23)
--- NOTE | 2018-02-20 10:01 | Internal Med Progress Note ---
<ChangJoanna E - Last Filed: 02/20/18 15:22> Hospitalist Progress Note - Encounter Date of Encounter: 02/20/18 Time of Encounter: 09:57 - Subjective Interval History: Ms. Menon was seen at bedside this morning. She states she is feeling very weak right now but overall feels better than she did when she first presented to the ER. She states she was not able to finish all of her bowel prep last night. She stated she finished about 3/4 of it and then fell asleep. HEr stools were clear last night but are slightly tinged this morning, she is currently trying to finish her bowel prep so she can receive her endoscopy/colonoscopy today. - Exam Vitals: Temp Pulse Resp BP Pulse Ox 98.8 F 103 16 117/77 94 02/20/18 07:11 02/20/18 07:11 02/20/18 07:11 02/20/18 07:11 02/20/18 07:11 Exam: GEneral: AAOx3, mild distress, tired Heart: RRR, no murmurs, rubs, or gallops Lungs: CTAB, no wheezing, no rhonchi, no rales Extremities: no pedal edema, pulses equal in all 4 extremtities Skin: warm, dry, intact, pale Eyes: conjunctiva pale Abd: normal bowel sounds, no tenderness on palpation, no guarding or rigidity - Assessment and Plan (1) Symptomatic anemia Current Visit: Yes Status: Acute Assessment and Plan: Presented with SOB and fatigue, likely due to upper GI bleed Patient was transfused with 2 units of PRBC on night of admission with hemoglobin responding appropriately GI planning on endoscopy and colonoscopy today. continue to monitor H&H, transfuse as needed (2) Upper GI bleed Current Visit: Yes Status: Acute Assessment and Plan: Concern for hemorrhagic gastritis or ulcer disease due to high dose and chronic use of NSAIDS along with symptoms of anemia and dark tarry stools PPI GI following and planning on endoscopy and colonoscopy today (3) Ankle fracture Current Visit: Yes Status: Chronic Assessment and Plan: f/u care per ortho as an outpatient (4) COPD (chronic obstructive pulmonary disease) Current Visit: Yes Status: Chronic Assessment and Plan: duoneb PRN No acute exacerbation DVT Prophylaxis: anti-embolic stockings - Time Spent with Patient Total time spent is greater than 50% in coordination of care (as documented) at patient's floor/unit and/or counseling patient: Plan of Care Discussed with: patient Internal Medicine: Result - Labs CBC & Chem 7: 02/20/18 05:07 02/20/18 00:18 Labs: Short CBC 02/19/18 02/20/18 02/20/18 Range/Units 14:41 00:18 05:07 WBC 6.3 (4.3-11.1) K/mcL Hgb 7.7 L 7.3 L 7.5 L (11.5-15.4) g/dL Hct 25.6 L 23.5 L 24.3 L (35.3-44.9) % Plt Count 380 (140-400) K/mcL Neutrophils # 3.5 (1.6-8.9) K/mcL BMP 02/20/18 00:18 Sodium 138 Potassium 4.0 Chloride 111 H Carbon Dioxide 20 L BUN 10 Creatinine 0.85 Glucose 92 Calcium 8.2 L - ABG Interpretation ABG results: PT/INR, D-dimer PT 11.4 Seconds (9.4-12.1) 02/19/18 08:46 Consult Discharge Plan - Plan Instructions: Gastritis (GEN) Additional Instructions: Start protonix twice daily Pureed diet of soft foods Follow up with GI as scheduled Follow up with your primary care provider as scheduled Referrals: Nayan Mathews MD [Partnered Physician] - (two weeks) Cally Orr [Primary Care Provider] - Prescriptions: Pantoprazole Sodium [Protonix] 40 mg PO BID #60 tablet. <Donna Pabon - Last Filed: 02/20/18 16:58> Hospitalist Progress Note - Encounter Date of Encounter: 02/20/18 - Exam Vitals: Temp Pulse Resp BP Pulse Ox 97.7 F 89 16 117/78 97 02/20/18 14:00 02/20/18 14:00 02/20/18 14:00 02/20/18 14:00 02/20/18 14:00 - Assessment and Plan (1) Symptomatic anemia Current Visit: Yes Status: Acute (2) Upper GI bleed Current Visit: Yes Status: Acute (3) Ankle fracture Current Visit: Yes Status: Chronic (4) COPD (chronic obstructive pulmonary disease) Current Visit: Yes Status: Chronic (5) DVT prophylaxis Current Visit: Yes Status: Acute - Time Spent with Patient Total time spent is greater than 50% in coordination of care (as documented) at patient's floor/unit and/or counseling patient: Internal Medicine: Result - Labs CBC & Chem 7: 02/20/18 05:07 02/20/18 00:18 Labs: Short CBC 02/20/18 02/20/18 Range/Units 00:18 05:07 WBC 6.3 (4.3-11.1) K/mcL Hgb 7.3 L 7.5 L (11.5-15.4) g/dL Hct 23.5 L 24.3 L (35.3-44.9) % Plt Count 380 (140-400) K/mcL Neutrophils # 3.5 (1.6-8.9) K/mcL BMP 02/20/18 00:18 Sodium 138 Potassium 4.0 Chloride 111 H Carbon Dioxide 20 L BUN 10 Creatinine 0.85 Glucose 92 Calcium 8.2 L - ABG Interpretation ABG results: PT/INR, D-dimer PT 11.4 Seconds (9.4-12.1) 02/19/18 08:46 - Attending Attestation I saw and independently assessed this patient and agree with plan per resident as above GEneral: AAOx3, NAD Heart: RRR, no murmurs, rubs, or gallops Lungs: CTAB, no wheezing, no rhonchi, no rales Extremities: no pedal edema, pulses equal in all 4 extremtities Skin: warm, dry, intact, pale Eyes: conjunctiva pale Abd: normal bowel sounds, no tenderness on palpation, no guarding or rigidity Plan Acute Upper GI bleed with symptomatic anemia likely secondary to NSAID use. S?p endoscopy with no active bleeding. GI recommend discharge on PPI BID and outpatient followup <Joanna Downing Dennys - Last Filed: 02/20/18 15:22> (3) Ankle fracture Qualifiers: Encounter type: subsequent encounter Fracture type: closed Laterality: right Fracture healing: with routine healing Qualified Code(s): S82.891D - Other fracture of right lower leg, subsequent encounter for closed fracture with routine healing (4) COPD (chronic obstructive pulmonary disease) Qualifiers: COPD type: unspecified COPD Qualified Code(s): J44.9 - Chronic obstructive pulmonary disease, unspecified <Donna Pabon A - Last Filed: 02/20/18 16:58> (3) Ankle fracture Qualifiers: Encounter type: subsequent encounter Fracture type: closed Laterality: right Fracture healing: with routine healing Qualified Code(s): S82.891D - Other fracture of right lower leg, subsequent encounter for closed fracture with routine healing (4) COPD (chronic obstructive pulmonary disease) Qualifiers: COPD type: unspecified COPD Qualified Code(s): J44.9 - Chronic obstructive pulmonary disease, unspecified
--- NOTE | 2018-02-20 12:14 | Anesthesia Evaluation PreOp ---
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: Seizures (last seizure 7 years ago, not being medically treated) Other Medical History: Renal (kidney stones), GERD, Other (anxiety/depression/panic d/o) Anesthesia History: No Prior Anesthetic Complications, Past Anesthesia Alcohol Use: none Drug use: marijuana Medications and Allergies ALPRAZolam [Xanax 0.5 MG Tablet] 0.5 mg PO BID 08/06/17 [History] Albuterol Sulfate [Ventolin Hfa] 2 puff IH Q4H PRN 08/06/17 [History] Atorvastatin Calcium [Lipitor] 20 mg PO DAILY 08/06/17 [History] Loratadine [Claritin] 10 mg PO DAILY 08/06/17 [History] Omeprazole [PriLOSEC] 20 mg PO DAILY 08/06/17 [History] Tiotropium [place] [Spiriva Respimat] 2 puff IH DAILY 08/06/17 [History] Montelukast [Singulair] 10 mg PO HS 11/12/17 [History] ALPRAZolam [Xanax 0.5 MG Tablet] 1 mg PO HS 02/18/18 [History] PARoxetine HCl [Paroxetine HCl] 20 mg PO DAILY 02/18/18 [History] Allergy/AdvReac Type Severity Reaction Status Date / Time No Known Allergies Allergy Verified 11/12/17 13:51 - Meds/Allergy Pre-op Review Medications Reviewed: Yes Allergies Reviewed: Yes Beta Blockers on Current Med List: No Anesthesia Results - Labs 02/20/18 05:07 02/20/18 00:18 - Imaging EKG: report reviewed (02/18/2018 Sinus tachycardia Ventricular premature complex Abnormal R-wave progression, early transition Nonpsecific ST-T changes) Anesthesia Exam Vital Signs/O2 Sat/Glucose, Most Recent Temp Pulse Resp BP Pulse Ox 98.0 F 90 14 114/76 96 02/20/18 10:00 02/20/18 10:00 02/20/18 10:00 02/20/18 10:00 02/20/18 10:00 Blood Glucose* 103 Height: 5'3''/1.6m Weight: 158 lbs/72 kg NPO (# of Hours): 8 Pain Scale: 0 Pain Scale Used: Numeric (1 - 10) - HEENT Pupil (Motor): EOMI Mallampati: II Teeth: Missing, Poor dentition Denture Type: Upper: Complete Oral Opening: Greater than 3 - [employer]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
[2018-02-20] MEDS ORDERED: *HR* Propofol 200 MG/20 ML VIAL IVP ONE (13:05)
[2018-02-20] MEDS ORDERED: Lidocaine -MPF 2% 2 ML VIAL ONE (13:05)
[2018-02-20 14:14] VITALS: BP 117/78
--- NOTE | 2018-02-20 15:56 | Discharge Summary ---
<Joanna Downing E - Last Filed: 02/20/18 15:53> Orders not resulted at time of discharge: Pending orders 02/21/18 04:00 Basic Metabolic Panel AM 0400 CBC [Complete Blood Count] [HEME] AM 0400 02/22/18 04:00 Basic Metabolic Panel AM 0400 CBC [Complete Blood Count] [HEME] AM 0400 02/23/18 04:00 Basic Metabolic Panel AM 0400 CBC [Complete Blood Count] [HEME] AM 0400 02/24/18 04:00 Basic Metabolic Panel AM 0400 CBC [Complete Blood Count] [HEME] AM 0400 02/25/18 04:00 Basic Metabolic Panel AM 0400 CBC [Complete Blood Count] [HEME] AM 0400 Date of Encounter: 02/20/18 Time of Encounter: 09:00 - Discharge Diagnosis (1) Symptomatic anemia Priority: Primary Status: Acute (2) Upper GI bleed Priority: Primary Status: Acute (3) Ankle fracture Priority: Secondary Status: Chronic Qualifiers: Encounter type: subsequent encounter Fracture type: closed Laterality: right Fracture healing: with routine healing Qualified Code(s): S82.891D - Other fracture of right lower leg, subsequent encounter for closed fracture with routine healing (4) COPD (chronic obstructive pulmonary disease) Priority: Secondary Status: Chronic Qualifiers: COPD type: unspecified COPD Qualified Code(s): J44.9 - Chronic obstructive pulmonary disease, unspecified Hospital course: Ms. Menon is a 57 year old female who presented to the ED with weakness. History of multiple years of taking 80mg tid ibuprofen. No history of GI bleed. She did note black tarry stools. She was [facility] the [facility] and her CBC was 5.1, later at ED was a 4.5. She recieved two units of PRBC adn ehr hemoglobin increased to 8.1. GI was consulted as her FBOT was positive for blood in stool. An endoscopy and colonoscopy where preformed this morning showing gastritis, no active bleeding. GI recommends outpatient follow up and 8 weeks of 40mg BID for 8 weeks. Discharge discussed with: patient - Time Spent with Patient Total time spent providing and/or coordinating discharge services: - Discharge Medications Prescriptions: Pantoprazole Sodium [Protonix] 40 mg PO BID #60 tablet.dr Diego Medications: ALPRAZolam [Xanax 0.5 MG Tablet] 0.5 mg PO BID 08/06/17 [History] Albuterol Sulfate [Ventolin Hfa] 2 puff IH Q4H PRN 08/06/17 [History] Atorvastatin Calcium [Lipitor] 20 mg PO DAILY 08/06/17 [History] Loratadine [Claritin] 10 mg PO DAILY 08/06/17 [History] Tiotropium Marshall [Spiriva Respimat] 2 puff IH DAILY 08/06/17 [History] Montelukast [Singulair] 10 mg PO HS 11/12/17 [History] ALPRAZolam [Xanax 0.5 MG Tablet] 1 mg PO HS 02/18/18 [History] PARoxetine HCl [Paroxetine HCl] 20 mg PO DAILY 02/18/18 [History] Pantoprazole Sodium [Protonix] 40 mg PO BID #60 tablet. 02/20/18 [Rx] Allergies/Adverse Reactions: Allergy/AdvReac Type Severity Reaction Status Date / Time No Known Allergies Allergy Verified 11/12/17 13:51 Date of admission: 02/18/18 22:04 Primary care physician: Cally Orr Consults: 02/18/18 21:18 Consult to Gastroenterology [CONS] Routine Consulting Provider: Gastroenterology Baldwin Reason for Consult: patient admitted with signs of UGIB and severe symptomatic blood loss anemia Call Completed: No Discharging clinician: Donna Pabon Anticipated date of discharge: 02/20/18 - Constitutional Vitals: Temp Pulse Resp BP Pulse Ox 97.7 F 89 16 117/78 97 02/20/18 14:00 02/20/18 14:00 02/20/18 14:00 02/20/18 14:00 02/20/18 14:00 Exam: GEneral: AAOx3, mild distress, tired Heart: RRR, no murmurs, rubs, or gallops Lungs: CTAB, no wheezing, no rhonchi, no rales Extremities: no pedal edema, pulses equal in all 4 extremtities Skin: warm, dry, intact, pale Eyes: conjunctiva pale Abd: normal bowel sounds, no tenderness on palpation, no guarding or rigidity - Patient Status Disposition: Home, Self-Care Condition: Fair Overall status at discharge: patient is progressing back to baseline - Discharge Instructions Instructions: Gastritis (GEN) Follow Up With: Cally Orr [Primary Care Provider] - Nayan Mathews MD [Partnered Physician] - (two weeks) Additional Instructions: Start protonix twice daily Pureed diet of soft foods Follow up with GI as scheduled Follow up with your primary care provider as scheduled - Diet and Activity Activity: resume usual activities as tolerated Diet: other (pureed diet) <Donna Pabon - Last Filed: 02/20/18 16:58> Orders not resulted at time of discharge: Pending orders 02/21/18 04:00 Basic Metabolic Panel AM 0400 CBC [Complete Blood Count] [HEME] AM 0400 02/22/18 04:00 Basic Metabolic Panel AM 0400 CBC [Complete Blood Count] [HEME] AM 0400 02/23/18 04:00 Basic Metabolic Panel AM 0400 CBC [Complete Blood Count] [HEME] AM 0400 02/24/18 04:00 Basic Metabolic Panel AM 0400 CBC [Complete Blood Count] [HEME] AM 0400 02/25/18 04:00 Basic Metabolic Panel AM 0400 CBC [Complete Blood Count] [HEME] AM 0400 Date of Encounter: 02/20/18 - Discharge Diagnosis (1) Symptomatic anemia Status: Acute (2) Upper GI bleed Status: Acute (3) Ankle fracture Status: Chronic Qualifiers: Encounter type: subsequent encounter Fracture type: closed Laterality: ri ght Fracture healing: with routine healing Qualified Code(s): S82.891D - Other fracture of right lower leg, subsequent encounter for closed fracture with routine healing (4) COPD (chronic obstructive pulmonary disease) Status: Chronic Qualifiers: COPD type: unspecified COPD Qualified Code(s): J44.9 - Chronic obstructive pulmonary disease, unspecified (5) DVT prophylaxis Status: Acute Hospital course: Ms. Menon is a 57 year old female - Time Spent with Patient Total time spent providing and/or coordinating discharge services: Date of admission: 02/18/18 22:04 Primary care physician: Cally Orr Consults: 02/18/18 21:18 Consult to Gastroenterology [CONS] Routine Consulting Provider: Gastroenterology Joleen Reason for Consult: patient admitted with signs of UGIB and severe symptomatic blood loss anemia Call Completed: No - Constitutional Vitals: Temp Pulse Resp BP Pulse Ox 97.7 F 89 16 117/78 97 02/20/18 14:00 02/20/18 14:00 02/20/18 14:00 02/20/18 14:00 02/20/18 14:00 - Attending Attestation I saw and independently assessed this patient and agree with discharge summary per resident as above GEneral: AAOx3, NAD Heart: RRR, no murmurs, rubs, or gallops Lungs: CTAB, no wheezing, no rhonchi, no rales Extremities: no pedal edema, pulses equal in all 4 extremtities Skin: warm, dry, intact, pale Eyes: conjunctiva pale Abd: normal bowel sounds, no tenderness on palpation, no guarding or rigidity Plan Acute Upper GI bleed with symptomatic anemia likely secondary to NSAID use. S?p endoscopy with no active bleeding. GI recommend discharge on PPI BID and outpatient followup
== END 2018-02-20 19:35 | disposition home or self-care (01) | DRG 241 ==
LOC: 3ANU 16:55 → EMEROOARM 16:55 → 3ANU 21:38 → SUATTDRO 22:04
PROVIDERS: ADMIT Internal Medicine; ATTEND Student in an Organized Health Care Education/Training Program

== ENCOUNTER 2019-07-30 15:36 | Observation (INO) ==
[2019-07-30] MEDS ORDERED: methylPREDNISolone 125 MG/2 ML VIAL IVP ONE ×2 (16:12→21:36)
[2019-07-30 17:13] LABS: Basophils % 0.3 %; Mean Corpuscular Volume 76.8 fL (83.0-100.0)
[2019-07-30 17:14] LABS: Eosinophils # 0.3 K/mcL (0.0-0.6); Eosinophils % 2.7 %; Hematocrit 32.8 % (35.3-44.9); Hemoglobin 9.7 g/dL (11.5-15.4); Immature Granulocytes % 0.2 % (0-4); Mean Corpuscular HGB Conc 29.6 g/dL (31.6-35.5); Mean Corpuscular Hemoglobin 22.7 pg (28.0-33.3); Mean Platelet Volume 10.8 fL (9.4-12.4); Monocytes # 0.8 K/mcL (0.0-1.3); Monocytes % 8.5 %; Neutrophils # 6.5 K/mcL (1.6-8.9); Platelet Count 411 K/mcL (140-400); Red Blood Count 4.27 M/mcL (3.82-4.97); Red Cell Distribution Width 17.7 % (11.5-14.5); Segmented Neutrophils % 67.3 %; White Blood Count 9.7 K/mcL (4.3-11.1)
[2019-07-30 17:35] LABS: Alanine Aminotransferase 13 Units/L (7-52); Albumin 3.9 g/dL (3.5-5.7); Albumin/Globulin Ratio 1.1 (1.1-2.2); Alkaline Phosphatase 55 Units/L (34-104); Aspartate Amino Transferase 13 Units/L (13-39); BUN/Creatinine Ratio 9 (6-26); Bilirubin,Total 0.3 mg/dL (0.3-1.0); Blood Urea Nitrogen 9 mg/dL (8-23); Calcium 9.4 mg/dL (8.6-10.3); Carbon Dioxide 27 mEq/L (23-29); Chloride 105 mEq/L (98-107); Globulin 3.5 g/dL (2.4-3.5); Glucose 89 mg/dL (70-105); Osmolality,Calculated 284 (280-300); Potassium 4.4 mEq/L (3.5-5.1); Sodium 138 mEq/L (136-145); Total Protein 7.4 g/dL (6.4-8.9); Troponin I < 0.03 ng/mL (< 0.04); eGFR For African Americans > 60 (> 60); eGFR For Non-African Americans 55 (> 60)
[2019-07-30] MEDS: Ipratropium/Albuterol Neb 3 ML IH ONE ×2 (17:57)
[2019-07-30] MEDS ORDERED: Naloxone 0.4 MG/ML INJ IVP PRN (19:40)
[2019-07-30] MEDS ORDERED: Ipratropium/Albuterol Neb 3 ML IH PRN (19:42)
[2019-07-30] MEDS: ALPRAZolam 1 MG TABLET PO SCH (21:22)
[2019-07-30] MEDS ORDERED: Azithromycin 500 MG in 0.9 % Sodium Chloride 250 ML IVPB SCH (22:00)
[2019-07-31 05:59] LABS: Basophils # 0.1 K/mcL (0.0-0.2); Basophils % 0.5 %; Eosinophils # 0.3 K/mcL (0.0-0.6); Eosinophils % 3.4 %; Hematocrit 33.6 % (35.3-44.9); Hemoglobin 9.8 g/dL (11.5-15.4); Immature Granulocytes % 0.4 % (0-4); Mean Corpuscular HGB Conc 29.2 g/dL (31.6-35.5); Mean Corpuscular Hemoglobin 22.6 pg (28.0-33.3); Mean Corpuscular Volume 77.6 fL (83.0-100.0); Mean Platelet Volume 11.4 fL (9.4-12.4); Monocytes % 10.4 %; Platelet Count 431 K/mcL (140-400); Red Blood Count 4.33 M/mcL (3.82-4.97); Red Cell Distribution Width 17.9 % (11.5-14.5); Segmented Neutrophils % 64.3 %; White Blood Count 9.3 K/mcL (4.3-11.1)
[2019-07-31 06:20] LABS: BUN/Creatinine Ratio 13 (6-26); Blood Urea Nitrogen 14 mg/dL (8-23); Calcium 9.2 mg/dL (8.6-10.3); Carbon Dioxide 24 mEq/L (23-29); Chloride 107 mEq/L (98-107); Glucose 100 mg/dL (70-105); Osmolality,Calculated 289 (280-300); Potassium 4.6 mEq/L (3.5-5.1); Sodium 139 mEq/L (136-145); eGFR For African Americans > 60 (> 60); eGFR For Non-African Americans 51 (> 60)
[2019-07-31] MEDS ORDERED: MethylPREDNISolone 40 MG/ML VIAL IVP SCH (08:00)
[2019-07-31] MEDS: PARoxetine 20 MG TABLET PO SCH (08:49)
[2019-07-31] MEDS: Loratadine 10 MG TABLET PO SCH (08:49)
[2019-07-31] MEDS: ALPRAZolam 0.5 MG TABLET PO SCH ×2 (08:49→16:23)
[2019-07-31] MEDS: Tiotropium 18 MCG inhalation IH SCH (09:54)
[2019-07-31] MEDS ORDERED: Mag Hydrox/Al Hydrox/Simeth 30 ML UDC PO PRN (13:37)
[2019-07-31] MEDS ORDERED: Azithromycin 500 MG in 0.9 % Sodium Chloride 250 ML IVPB SCH (15:00)
[2019-07-31] MEDS: Pantoprazole 40 MG VIAL IVP SCH (16:23)
[2019-07-31] MEDS ORDERED: Acetaminophen 325 MG TABLET PO ONE (19:46)
[2019-07-31] MEDS: ALPRAZolam 1 MG TABLET PO SCH (20:24)
[2019-08-01 04:43] LABS: Basophils % 0.2 %; Eosinophils % 0.1 %; Hematocrit 29.9 % (35.3-44.9); Immature Granulocytes % 0.3 % (0-4); Lymphocytes # 2.2 K/mcL (0.6-4.6); Lymphocytes % 22.1 %; Mean Corpuscular HGB Conc 30.1 g/dL (31.6-35.5); Mean Corpuscular Hemoglobin 22.8 pg (28.0-33.3); Mean Corpuscular Volume 75.9 fL (83.0-100.0); Mean Platelet Volume 10.6 fL (9.4-12.4); Monocytes # 0.9 K/mcL (0.0-1.3); Monocytes % 8.7 %; Neutrophils # 6.8 K/mcL (1.6-8.9); Platelet Count 373 K/mcL (140-400); Red Blood Count 3.94 M/mcL (3.82-4.97); Red Cell Distribution Width 17.5 % (11.5-14.5); Segmented Neutrophils % 68.6 %; White Blood Count 9.8 K/mcL (4.3-11.1)
[2019-08-01 05:10] LABS: BUN/Creatinine Ratio 16 (6-26); Blood Urea Nitrogen 15 mg/dL (8-23); Carbon Dioxide 24 mEq/L (23-29); Chloride 107 mEq/L (98-107); Glucose 106 mg/dL (70-105); Osmolality,Calculated 287 (280-300); Potassium 3.8 mEq/L (3.5-5.1); Sodium 138 mEq/L (136-145); eGFR For African Americans > 60 (> 60); eGFR For Non-African Americans > 60 (> 60)
[2019-08-01] MEDS: Tiotropium 18 MCG inhalation IH SCH (07:53)
[2019-08-01] MEDS: Pantoprazole 40 MG VIAL IVP SCH (08:19)
[2019-08-01] MEDS: ALPRAZolam 0.5 MG TABLET PO SCH (08:19)
[2019-08-01] MEDS: PARoxetine 20 MG TABLET PO SCH (08:19)
[2019-08-01] MEDS: Loratadine 10 MG TABLET PO SCH (08:19)
[2019-08-01 11:27] VITALS: BP 108/71
[2019-08-01] MEDS ORDERED: Azithromycin 250 MG TABLET PO STA (13:41)
[2019-08-02 01:05] LABS: Acinetobacter baumannii by PCR Not Detected (Not Detect); Candida albicans by PCR Not Detected (Not Detect); Candida glabrata by PCR Not Detected (Not Detect); Candida krusei by PCR Not Detected (Not Detect); Candida parapsilosis by PCR Not Detected (Not Detect); Candida tropicalis by PCR Not Detected (Not Detect); Enterobacter cloacae Cmplx PCR Not Detected (Not Detect); Enterobacteriaceae by PCR Not Detected (Not Detect); Enterococcus by PCR Not Detected (Not Detect); Escherichia coli by PCR Not Detected (Not Detect); Klebsiella oxytoca by PCR Not Detected (Not Detect); Klebsiella pneumoniae by PCR Not Detected (Not Detect); Proteus by PCR Not Detected (Not Detect); Pseudomonas aeruginosa by PCR Not Detected (Not Detect); Serratia marcescens by PCR Not Detected (Not Detect); Staphylococcus aureus by PCR Not Detected (Not Detect); Staphylococcus by PCR DETECTED (Not Detect); Streptococcus agalactiae(B)PCR Not Detected (Not Detect); Streptococcus by PCR Not Detected (Not Detect); Streptococcus pneumoniae PCR Not Detected (Not Detect); Streptococcus pyogenes (A) PCR Not Detected (Not Detect); mecA Methicillin-Resist Gene DETECTED (Not Detect)
== END 2019-08-01 14:26 | disposition left against medical advice (07) ==
LOC: 2NENU 15:36 → EMEROOARM 15:36 → SUATTDRO 19:13 → 2NENU 20:10
PROVIDERS: ADMIT Internal Medicine; ATTEND Internal Medicine

== ENCOUNTER 2020-02-12 13:19 | Observation (INO) ==
[2020-02-12 14:17] LABS: Nucleated Red Blood Cells 0.2 /100 WBC (0)
[2020-02-12 14:19] LABS: Basophils % 0.2 %; Eosinophils # 0.2 K/mcL (0.0-0.6); Eosinophils % 1.4 %; Hematocrit 27.2 % (35.3-44.9); Hemoglobin 7.5 g/dL (11.5-15.4); Immature Granulocytes % 0.4 % (0-4); Lymphocytes # 1.8 K/mcL (0.6-4.6); Lymphocytes % 14.1 %; Mean Corpuscular HGB Conc 27.6 g/dL (31.6-35.5); Mean Corpuscular Hemoglobin 20.1 pg (28.0-33.3); Mean Corpuscular Volume 72.9 fL (83.0-100.0); Mean Platelet Volume 10.5 fL (9.4-12.4); Monocytes % 7.8 %; Neutrophils # 9.4 K/mcL (1.6-8.9); Platelet Count 466 K/mcL (140-400); Red Blood Count 3.73 M/mcL (3.82-4.97); Red Cell Distribution Width 21.5 % (11.5-14.5); Segmented Neutrophils % 76.1 %; White Blood Count 12.4 K/mcL (4.3-11.1)
[2020-02-12 14:36] LABS: BUN/Creatinine Ratio 9 (6-26); Blood Urea Nitrogen 9 mg/dL (8-23); Calcium 8.6 mg/dL (8.6-10.3); Carbon Dioxide 23 mEq/L (23-29); Chloride 107 mEq/L (98-107); Glucose 71 mg/dL (70-105); Osmolality,Calculated 283 (280-300); Potassium 3.6 mEq/L (3.5-5.1); Sodium 138 mEq/L (136-145); Troponin I < 0.03 ng/mL (< 0.04); eGFR For African Americans > 60 (> 60); eGFR For Non-African Americans 57 (> 60)
[2020-02-12 14:40] LABS: Hypochromasia Present (Not Present); Toxic Granulation Present (Not Present)
[2020-02-12 14:42] LABS: Anisocytosis 1+ (Not Present)
[2020-02-12] MEDS ORDERED: Furosemide 40 MG/4 ML VIAL IVP ONE (16:21)
[2020-02-12] MEDS ORDERED: Ondansetron 4 MG/2 ML VIAL IVP PRN (16:35)
[2020-02-12] MEDS ORDERED: Acetaminophen 325 MG TABLET PO PRN (16:35)
[2020-02-12] MEDS ORDERED: Naloxone 0.4 MG/ML INJ IVP PRN (16:35)
[2020-02-12] MEDS ORDERED: Benzonatate 100 MG CAPSULE PO PRN (16:42)
[2020-02-12 16:56] LABS: Chol/HDL Ratio 3.2 (0-4.9); Cholesterol 133 mg/dL (< 200); HDL Cholesterol 42 mg/dL (40-59); LDL Cholesterol,Calculated 69 mg/dL (< 100); Triglycerides 110 mg/dL (< 150)
[2020-02-12] MEDS: Ipratropium 1 PUFF INHALER IH SCH ×2 (17:56→21:54)
[2020-02-12 18:05] LABS: % Iron Saturation 4 % (15-50); C-Reactive Protein 15 mg/L (Less than 10); Iron 17 mcg/dL (50-170); Lactate Dehydrogenase 173 Units/L (140-271); Transferrin 270 mg/dL (203-362)
[2020-02-12 18:10] LABS: ABG Base Excess 1 mEq/L (-2 to 3); ABG HCO3 25 mEq/L (21-27); ABG Oxygen Saturation 89 % (95-98); ABG PCO2 40 mmHg (35-45); ABG PH 7.41 pH Units (7.32-7.45); ABG PO2 55 mmHg (85-104); ABG TCO2 26 mEq/L (20-26)
[2020-02-12 18:23] LABS: Ferritin 8 ng/mL (10-120)
[2020-02-12] MEDS: Dexamethasone 4 MG/ML VIAL IVP SCH (20:49)
[2020-02-12] MEDS: Azithromycin 500 MG in 0.9 % Sodium Chloride 250 ML IVPB SCH (20:50)
[2020-02-12] MEDS: *HR* Heparin 5,000 UNIT/ML VIAL SQ SCH (20:50)
[2020-02-12] MEDS: Budesonide/Formoterol 80/4.5 1 PUFF INH IH SCH (21:54)
[2020-02-12 22:08] LABS: Adenovirus Not Detected (Not Detect); Bordetella Pertussis Not Detected (Not Detect); Chlamydophila pneumoniae Not Detected (Not Detect); Coronavirus 229E Not Detected (Not Detect); Coronavirus HKU1 Not Detected (Not Detect); Coronavirus NL63 Not Detected (Not Detect); Coronavirus OC43 Not Detected (Not Detect); Human Metapneumovirus Not Detected (Not Detect); Human Rhinovirus/Enterovirus Not Detected (Not Detect); Influenza A Subtype 2009 H1 Not Detected (Not Detect); Influenza B Not Detected (Not Detect); Mycoplasma pneumoniae Not Detected (Not Detect); Parainfluenza Virus 1 Not Detected (Not Detect); Parainfluenza Virus 2 Not Detected (Not Detect); Parainfluenza Virus 3 Not Detected (Not Detect); Parainfluenza Virus 4 Not Detected (Not Detect); Respiratory Syncytial Virus Not Detected (Not Detect); SARS-CoV-2 Not Detected (Not Detect)
[2020-02-13] MEDS: *HR* HYDROcodone/Acet 5/325 mg TABLET PO PRN ×3 (02:32→17:39)
[2020-02-13] MEDS: Ipratropium 1 PUFF INHALER IH SCH ×4 (04:41→22:00)
[2020-02-13] MEDS: *HR* Heparin 5,000 UNIT/ML VIAL SQ SCH (05:10)
[2020-02-13] MEDS: Furosemide 20 MG/2 ML VIAL IVP SCH (07:47)
[2020-02-13] MEDS: Nicotine 14 MG PATCH.TD24 TD SCH (07:47)
[2020-02-13] MEDS: Dexamethasone 4 MG/ML VIAL IVP SCH ×2 (07:47→19:49)
[2020-02-13] MEDS: cefTRIAXone 1,000 MG in 0.9 % Sodium Chloride Mini Bag 100 ML IVPB SCH (07:48)
[2020-02-13] MEDS: ALPRAZolam 1 MG TABLET PO PRN ×2 (08:21→19:49)
[2020-02-13] MEDS: Budesonide/Formoterol 80/4.5 1 PUFF INH IH SCH ×2 (09:45→22:00)
[2020-02-13 10:10] LABS: Basophils % 0.1 %; Mean Platelet Volume 10.4 fL (9.4-12.4)
[2020-02-13 10:12] LABS: Hematocrit 28.6 % (35.3-44.9); Hemoglobin 7.7 g/dL (11.5-15.4); Immature Granulocytes % 0.8 % (0-4); Lymphocytes # 0.9 K/mcL (0.6-4.6); Lymphocytes % 8.6 %; Mean Corpuscular HGB Conc 26.9 g/dL (31.6-35.5); Mean Corpuscular Hemoglobin 19.8 pg (28.0-33.3); Mean Corpuscular Volume 73.5 fL (83.0-100.0); Monocytes # 0.1 K/mcL (0.0-1.3); Monocytes % 0.7 %; Nucleated Red Blood Cells 0.5 /100 WBC (0); Platelet Count 461 K/mcL (140-400); Red Blood Count 3.89 M/mcL (3.82-4.97); Red Cell Distribution Width 21.9 % (11.5-14.5); Segmented Neutrophils % 89.8 %
[2020-02-13 10:32] LABS: Alanine Aminotransferase 6 Units/L (7-52); Albumin 3.9 g/dL (3.5-5.7); Albumin/Globulin Ratio 1.1 (1.1-2.2); Alkaline Phosphatase 42 Units/L (34-104); Aspartate Amino Transferase 8 Units/L (13-39); BUN/Creatinine Ratio 13 (6-26); Bilirubin,Total 0.2 mg/dL (0.3-1.0); Blood Urea Nitrogen 13 mg/dL (8-23); Carbon Dioxide 20 mEq/L (23-29); Chloride 108 mEq/L (98-107); Globulin 3.4 g/dL (2.4-3.5); Glucose 166 mg/dL (70-105); Magnesium 1.9 mg/dL (1.6-2.6); Osmolality,Calculated 292 (280-300); Sodium 139 mEq/L (136-145); Total Protein 7.3 g/dL (6.4-8.9); eGFR For African Americans > 60 (> 60); eGFR For Non-African Americans 55 (> 60)
[2020-02-13 10:33] LABS: INR 1.1; Prothrombin Time 13.2 Seconds (9.4-12.1)
[2020-02-13 10:34] LABS: Anisocytosis 1+ (Not Present)
[2020-02-13 10:35] LABS: Hypochromasia Present (Not Present); Microcytosis Present (Not Present); Polychromasia 1+ (Not Present)
[2020-02-13 10:36] LABS: Activated Partial Thrombo Time 26.6 Seconds (26.0-36.0)
[2020-02-13] MEDS: Azithromycin 500 MG in 0.9 % Sodium Chloride 250 ML IVPB SCH (17:39)
[2020-02-13] MEDS: Gabapentin 300 MG CAPSULE PO SCH (19:49)
[2020-02-13] MEDS: Sucralfate 1 GM TABLET PO SCH (19:49)
[2020-02-14] MEDS: *HR* HYDROcodone/Acet 5/325 mg TABLET PO PRN ×2 (00:12→07:45)
[2020-02-14] MEDS: Ipratropium 1 PUFF INHALER IH SCH ×3 (03:34→15:50)
[2020-02-14] MEDS ORDERED: *HR* Enoxaparin 40 MG/0.4 ML SYRINGE SQ SCH (06:00)
[2020-02-14 06:43] LABS: Basophils % 0.2 %; Nucleated Red Blood Cells 0.6 /100 WBC (0)
[2020-02-14 06:45] LABS: Hematocrit 25.9 % (35.3-44.9); Hemoglobin 7.2 g/dL (11.5-15.4); Immature Granulocytes % 1.7 % (0-4); Lymphocytes # 1.8 K/mcL (0.6-4.6); Lymphocytes % 16.2 %; Mean Corpuscular HGB Conc 27.8 g/dL (31.6-35.5); Mean Corpuscular Hemoglobin 19.6 pg (28.0-33.3); Mean Corpuscular Volume 70.6 fL (83.0-100.0); Mean Platelet Volume 10.7 fL (9.4-12.4); Monocytes # 0.6 K/mcL (0.0-1.3); Monocytes % 5.6 %; Neutrophils # 8.2 K/mcL (1.6-8.9); Platelet Count 460 K/mcL (140-400); Red Blood Count 3.67 M/mcL (3.82-4.97); Red Cell Distribution Width 21.2 % (11.5-14.5); Segmented Neutrophils % 76.3 %; White Blood Count 10.8 K/mcL (4.3-11.1)
[2020-02-14 06:52] LABS: Fibrinogen 398 mg/dL (169-393)
[2020-02-14 06:53] LABS: D-Dimer 663 ng/mLFEU (0-500)
[2020-02-14 07:06] LABS: BUN/Creatinine Ratio 18 (6-26); Blood Urea Nitrogen 17 mg/dL (8-23); Calcium 8.9 mg/dL (8.6-10.3); Carbon Dioxide 22 mEq/L (23-29); Chloride 108 mEq/L (98-107); Glucose 122 mg/dL (70-105); Lactate Dehydrogenase 140 Units/L (140-271); Osmolality,Calculated 291 (280-300); Phosphorous 3.6 mg/dL (2.7-4.5); Potassium 3.5 mEq/L (3.5-5.1); Sodium 139 mEq/L (136-145); eGFR For African Americans > 60 (> 60); eGFR For Non-African Americans 60 (> 60)
[2020-02-14 07:37] LABS: Ferritin < 8 ng/mL (10-120)
[2020-02-14] MEDS: Furosemide 20 MG/2 ML VIAL IVP SCH (07:45)
[2020-02-14] MEDS: Dexamethasone 4 MG/ML VIAL IVP SCH (07:46)
[2020-02-14] MEDS: Gabapentin 300 MG CAPSULE PO SCH (07:46)
[2020-02-14] MEDS: Nicotine 14 MG PATCH.TD24 TD SCH (07:47)
[2020-02-14] MEDS: ALPRAZolam 1 MG TABLET PO PRN (07:47)
[2020-02-14] MEDS: Sucralfate 1 GM TABLET PO SCH (07:47)
[2020-02-14] MEDS: cefTRIAXone 1,000 MG in 0.9 % Sodium Chloride Mini Bag 100 ML IVPB SCH (07:47)
[2020-02-14 08:57] VITALS: BP 132/94
[2020-02-14] MEDS ORDERED: levoFLOXacin 750 MG TABLET PO SCH (09:00)
[2020-02-14] MEDS ORDERED: Ascorbic Acid 500 MG TABLET PO SCH (09:00)
[2020-02-14] MEDS ORDERED: dexAMETHasone 4 MG TABLET PO SCH (09:00)
[2020-02-14] MEDS ORDERED: Loratadine 10 MG TABLET PO SCH (09:00)
[2020-02-14] MEDS ORDERED: Furosemide 20 MG TABLET PO SCH (09:00)
[2020-02-14] MEDS: Budesonide/Formoterol 80/4.5 1 PUFF INH IH SCH (10:00)
== END 2020-02-14 16:20 | disposition home or self-care (01) ==
LOC: 2NENU 13:19 → EMEROOARM 13:19 → SUATTDRO 16:39 → 2NENU 18:11
PROVIDERS: ADMIT Internal Medicine; ATTEND Internal Medicine

== ENCOUNTER 2020-06-07 14:51 | Inpatient (IN) ==
[2020-06-07] MEDS ORDERED: Isovue-370 500 ML BOTTLE IVP ONE (15:23)
[2020-06-07] MEDS ORDERED: *HR* FentaNYL (PF) 100 MCG/2 ML VIAL IVP ONE ×3 (15:35→22:18)
[2020-06-07] MEDS ORDERED: Ondansetron 4 MG/2 ML VIAL IVP ONE (15:35)
[2020-06-07] MEDS ORDERED: 0.9 % Sodium Chloride 1,000 ML IVC ONE (15:35)
[2020-06-07 16:01] LABS: Basophils # 0.1 K/mcL (0.0-0.2); Basophils % 0.6 %; Eosinophils # 0.1 K/mcL (0.0-0.6); Hemoglobin 16.2 g/dL (11.5-15.4); Immature Granulocytes % 0.3 % (0-4); Lymphocytes # 1.5 K/mcL (0.6-4.6); Lymphocytes % 14.2 %; Mean Corpuscular HGB Conc 32.4 g/dL (31.6-35.5); Mean Corpuscular Hemoglobin 27.8 pg (28.0-33.3); Mean Corpuscular Volume 85.9 fL (83.0-100.0); Mean Platelet Volume 12.3 fL (9.4-12.4); Monocytes % 9.1 %; Neutrophils # 7.8 K/mcL (1.6-8.9); Platelet Count 472 K/mcL (140-400); Red Blood Count 5.82 M/mcL (3.82-4.97); Red Cell Distribution Width 15.7 % (11.5-14.5); Segmented Neutrophils % 74.8 %; White Blood Count 10.5 K/mcL (4.3-11.1)
[2020-06-07 17:14] LABS: Alanine Aminotransferase 15 Units/L (7-52); Albumin 3.8 g/dL (3.5-5.7); Alkaline Phosphatase 45 Units/L (34-104); Aspartate Amino Transferase 13 Units/L (13-39); BUN/Creatinine Ratio 24 (6-26); Bilirubin,Direct 0.2 mg/dL (0.0-0.2); Bilirubin,Indirect 0.4 mg/dL (0.0-1.0); Bilirubin,Total 0.6 mg/dL (0.3-1.0); Blood Urea Nitrogen 35 mg/dL (8-23); Calcium 9.6 mg/dL (8.6-10.3); Carbon Dioxide 27 mEq/L (23-29); Chloride 95 mEq/L (98-107); Globulin 3.8 g/dL (2.4-3.5); Glucose 96 mg/dL (70-105); Osmolality,Calculated 294 (280-300); Potassium 3.1 mEq/L (3.5-5.1); Sodium 138 mEq/L (136-145); Total Protein 7.6 g/dL (6.4-8.9); Troponin I < 0.03 ng/mL (< 0.04); eGFR For African Americans 43 (> 60); eGFR For Non-African Americans 36 (> 60)
[2020-06-07] MEDS ORDERED: Potassium Chloride Elixir 20 MEQ/15 ML UDC PO ONE (17:31)
[2020-06-07] MEDS ORDERED: Metoclopramide 10 MG/2 ML VIAL IVP ONE (20:16)
[2020-06-07 21:06] LABS: Bilirubin,Urine Negative (Negative); Blood,Urine Negative (Negative); Clarity,Urine Clear (Clear); Color,Urine Light-Yellow (Yellow); Glucose,Urine (UA) Normal (Normal); Ketones,Urine 10 mg/dL (Negative); Leukocyte Esterase,Urine Negative (Negative); Nitrite,Urine Negative (Negative); PH,Urine 6.5 pH Units (5.0-8.0); Protein,Urine Trace mg/dL (Neg-Trace); Specific Gravity,Urine > 1.030 (1.010-1.025); Urobilinogen,Urine Normal (Normal)
[2020-06-07] MEDS: 0.9 % Sodium Chloride 1,000 ML IVC SCH (21:23)
[2020-06-07] MEDS ORDERED: Albuterol 2.5 MG/3 ML NEBULIZER IH PRN (22:28)
[2020-06-07] MEDS ORDERED: *HR* FentaNYL PATCH 25 MCG PATCH TD SCH (22:30)
[2020-06-07] MEDS ORDERED: Scopolamine Patch 1.5 MG PATCH.TD72 TD SCH (22:30)
[2020-06-08] MEDS ORDERED: Ondansetron 4 MG/2 ML VIAL IVP SCH
[2020-06-08] MEDS ORDERED: Ondansetron 4 MG/2 ML VIAL IVP PRN (00:30)
[2020-06-08] MEDS: *HR* OxyCODONE Immed Rel 5 MG TABLET PO PRN ×2 (01:17→05:18)
[2020-06-08] MEDS: 0.9 % Sodium Chloride 1,000 ML IVC SCH ×2 (04:48→14:55)
[2020-06-08 05:21] LABS: INR 1.3; Prothrombin Time 15.3 Seconds (9.4-12.1)
[2020-06-08 05:25] LABS: Basophils # 0.1 K/mcL (0.0-0.2); Basophils % 0.7 %; Eosinophils # 0.2 K/mcL (0.0-0.6); Eosinophils % 2.2 %; Hematocrit 42.9 % (35.3-44.9); Immature Granulocytes % 0.3 % (0-4); Lymphocytes # 1.4 K/mcL (0.6-4.6); Lymphocytes % 18.8 %; Mean Corpuscular HGB Conc 32.2 g/dL (31.6-35.5); Mean Corpuscular Hemoglobin 28.8 pg (28.0-33.3); Mean Corpuscular Volume 89.4 fL (83.0-100.0); Mean Platelet Volume 11.9 fL (9.4-12.4); Monocytes # 0.9 K/mcL (0.0-1.3); Monocytes % 11.3 %; Neutrophils # 5.1 K/mcL (1.6-8.9); Platelet Count 345 K/mcL (140-400); Red Cell Distribution Width 15.3 % (11.5-14.5); Segmented Neutrophils % 66.7 %; White Blood Count 7.6 K/mcL (4.3-11.1)
[2020-06-08 05:31] LABS: Hemoglobin 13.8 g/dL (11.5-15.4)
[2020-06-08 05:49] LABS: BUN/Creatinine Ratio 26 (6-26); Blood Urea Nitrogen 26 mg/dL (8-23); Calcium 8.7 mg/dL (8.6-10.3); Carbon Dioxide 23 mEq/L (23-29); Chloride 103 mEq/L (98-107); Glucose 89 mg/dL (70-105); Magnesium 2.2 mg/dL (1.6-2.6); Osmolality,Calculated 294 (280-300); Potassium 2.7 mEq/L (3.5-5.1); Sodium 140 mEq/L (136-145); eGFR For African Americans > 60 (> 60); eGFR For Non-African Americans 56 (> 60)
[2020-06-08 06:11] LABS: Adenovirus Not Detected (Not Detect); Bordetella Pertussis Not Detected (Not Detect); Chlamydophila pneumoniae Not Detected (Not Detect); Coronavirus 229E Not Detected (Not Detect); Coronavirus HKU1 Not Detected (Not Detect); Coronavirus NL63 Not Detected (Not Detect); Coronavirus OC43 Not Detected (Not Detect); Human Metapneumovirus Not Detected (Not Detect); Human Rhinovirus/Enterovirus Not Detected (Not Detect); Influenza A Subtype 2009 H1 Not Detected (Not Detect); Influenza B Not Detected (Not Detect); Mycoplasma pneumoniae Not Detected (Not Detect); Parainfluenza Virus 1 Not Detected (Not Detect); Parainfluenza Virus 2 Not Detected (Not Detect); Parainfluenza Virus 3 Not Detected (Not Detect); Parainfluenza Virus 4 Not Detected (Not Detect); Respiratory Syncytial Virus Not Detected (Not Detect); SARS-CoV-2 Not Detected (Not Detect)
[2020-06-08] MEDS ORDERED: Acetaminophen 325 MG TABLET PO PRN (07:21)
[2020-06-08] MEDS ORDERED: Potassium Chloride 40 MEQ, Lidocaine 1% 2 ML in 0.9 % Sodium Chloride 500 ML IVPB ONE (07:57)
[2020-06-08] MEDS ORDERED: E-Z-HD (BARIUM SULF) SUSPENSION PO ONE (08:17)
[2020-06-08] MEDS ORDERED: E-Z-PAQUE (BARIUM SULF) SUSP 1 BOTTLE PO ONE (08:17)
[2020-06-08] MEDS ORDERED: Simethicone/Sodium Bic/Citr Ac 1 EACH GRAN.EF.PK PO ONE (08:17)
[2020-06-08] MEDS: ALPRAZolam 1 MG TABLET PO SCH ×2 (09:29→20:55)
[2020-06-08] MEDS: Gabapentin 300 MG CAPSULE PO SCH ×5 (09:29→21:08)
[2020-06-08] MEDS: Sucralfate 1 GM TABLET PO SCH ×4 (09:29→21:08)
[2020-06-08] MEDS: Loratadine 10 MG TABLET PO SCH (09:30)
[2020-06-08] MEDS: Pantoprazole 40 MG VIAL IVP SCH ×2 (09:31→17:50)
[2020-06-08] MEDS: Morphine Sulfate 2 MG/ML SYRINGE IVP PRN ×3 (11:12→20:48)
[2020-06-08] MEDS: Sennosides/Docusate Sodium TABLET PO SCH ×3 (11:13→21:08)
[2020-06-08] MEDS: Ondansetron 4 MG/2 ML VIAL IVP SCH ×2 (11:57→17:50)
[2020-06-08] MEDS: *HR* Heparin 5,000 UNIT/ML VIAL SQ SCH ×2 (14:08→20:58)
[2020-06-09] MEDS: 0.9 % Sodium Chloride 1,000 ML IVC SCH ×5 (01:18→20:51)
[2020-06-09] MEDS: Ondansetron 4 MG/2 ML VIAL IVP SCH ×3 (01:19→23:12)
[2020-06-09] MEDS: Morphine Sulfate 2 MG/ML SYRINGE IVP PRN ×4 (02:49→22:30)
[2020-06-09 05:11] LABS: Basophils % 0.5 %; Eosinophils # 0.1 K/mcL (0.0-0.6); Eosinophils % 2.5 %; Hematocrit 40.7 % (35.3-44.9); Hemoglobin 12.6 g/dL (11.5-15.4); Immature Granulocytes % 0.4 % (0-4); Lymphocytes # 1.2 K/mcL (0.6-4.6); Lymphocytes % 21.4 %; Mean Corpuscular Hemoglobin 28.4 pg (28.0-33.3); Mean Corpuscular Volume 91.9 fL (83.0-100.0); Mean Platelet Volume 12.1 fL (9.4-12.4); Monocytes # 0.5 K/mcL (0.0-1.3); Monocytes % 9.5 %; Neutrophils # 3.7 K/mcL (1.6-8.9); Platelet Count 302 K/mcL (140-400); Red Blood Count 4.43 M/mcL (3.82-4.97); Red Cell Distribution Width 15.1 % (11.5-14.5); Segmented Neutrophils % 65.7 %; White Blood Count 5.6 K/mcL (4.3-11.1)
[2020-06-09] MEDS: *HR* Heparin 5,000 UNIT/ML VIAL SQ SCH ×3 (05:20→20:58)
[2020-06-09] MEDS: Pantoprazole 40 MG VIAL IVP SCH ×2 (05:21→17:45)
[2020-06-09 05:28] LABS: BUN/Creatinine Ratio 17 (6-26); Blood Urea Nitrogen 15 mg/dL (8-23); Calcium 8.5 mg/dL (8.6-10.3); Carbon Dioxide 25 mEq/L (23-29); Chloride 108 mEq/L (98-107); Glucose 83 mg/dL (70-105); Magnesium 1.8 mg/dL (1.6-2.6); Osmolality,Calculated 292 (280-300); Phosphorous 2.8 mg/dL (2.7-4.5); Potassium 3.1 mEq/L (3.5-5.1); Sodium 141 mEq/L (136-145); eGFR For African Americans > 60 (> 60); eGFR For Non-African Americans > 60 (> 60)
[2020-06-09] MEDS ORDERED: Potassium Chloride 40 MEQ, Lidocaine 1% 2 ML in 0.9 % Sodium Chloride 500 ML IVPB ONE (07:52)
[2020-06-09] MEDS: Loratadine 10 MG TABLET PO SCH (10:12)
[2020-06-09] MEDS: Sucralfate 1 GM TABLET PO SCH (10:13)
[2020-06-09] MEDS: Gabapentin 300 MG CAPSULE PO SCH ×3 (10:13→20:58)
[2020-06-09] MEDS: ALPRAZolam 1 MG TABLET PO SCH ×2 (10:15→20:51)
[2020-06-09] MEDS: Sennosides/Docusate Sodium TABLET PO SCH ×2 (10:15→20:58)
[2020-06-09] MEDS ORDERED: *HR* Promethazine 25 MG/ML VIAL IM ONE (12:39)
[2020-06-09] MEDS ORDERED: Acetaminophen 325 MG TABLET PO PRN (12:45)
[2020-06-09] MEDS ORDERED: *HR* Dextrose 50 % in Water (Vial) 50 ML VIAL IVP ONE (13:14)
[2020-06-10] MEDS: Morphine Sulfate 2 MG/ML SYRINGE IVP PRN ×3 (04:30→18:35)
[2020-06-10] MEDS: *HR* Heparin 5,000 UNIT/ML VIAL SQ SCH ×3 (04:47→22:38)
[2020-06-10] MEDS: Pantoprazole 40 MG VIAL IVP SCH ×2 (04:48→17:22)
[2020-06-10] MEDS: 0.9 % Sodium Chloride 1,000 ML IVC SCH ×3 (04:49→22:38)
[2020-06-10 05:02] LABS: Basophils % 0.5 %; Eosinophils # 0.3 K/mcL (0.0-0.6); Eosinophils % 3.1 %; Hematocrit 42.1 % (35.3-44.9); Hemoglobin 13.1 g/dL (11.5-15.4); Immature Granulocytes % 0.1 % (0-4); Lymphocytes # 1.8 K/mcL (0.6-4.6); Lymphocytes % 22.9 %; Mean Corpuscular HGB Conc 31.1 g/dL (31.6-35.5); Mean Corpuscular Hemoglobin 28.7 pg (28.0-33.3); Mean Corpuscular Volume 92.3 fL (83.0-100.0); Mean Platelet Volume 11.9 fL (9.4-12.4); Monocytes # 0.7 K/mcL (0.0-1.3); Monocytes % 9.1 %; Neutrophils # 5.1 K/mcL (1.6-8.9); Platelet Count 283 K/mcL (140-400); Red Blood Count 4.56 M/mcL (3.82-4.97); Segmented Neutrophils % 64.3 %
[2020-06-10 05:22] LABS: BUN/Creatinine Ratio 7 (6-26); Blood Urea Nitrogen 6 mg/dL (8-23); Calcium 8.4 mg/dL (8.6-10.3); Carbon Dioxide 24 mEq/L (23-29); Chloride 106 mEq/L (98-107); Glucose 89 mg/dL (70-105); Magnesium 1.6 mg/dL (1.6-2.6); Osmolality,Calculated 285 (280-300); Potassium 2.9 mEq/L (3.5-5.1); Sodium 139 mEq/L (136-145); eGFR For African Americans > 60 (> 60); eGFR For Non-African Americans > 60 (> 60)
[2020-06-10] MEDS ORDERED: Potassium Phosphate 44 MEQ in 0.9 % Sodium Chloride 250 ML IVPB ONE (07:27)
[2020-06-10] MEDS ORDERED: Ondansetron 4 MG/2 ML VIAL IVP PRN (07:40)
[2020-06-10] MEDS ORDERED: Potassium Chloride 40 MEQ, Lidocaine 1% 2 ML in 0.9 % Sodium Chloride 500 ML IVPB ONE (07:40)
[2020-06-10] MEDS: Gabapentin 300 MG CAPSULE PO SCH ×4 (09:15→20:11)
[2020-06-10] MEDS: ALPRAZolam 1 MG TABLET PO SCH ×2 (09:16→20:09)
[2020-06-10] MEDS: Loratadine 10 MG TABLET PO SCH (09:16)
[2020-06-10] MEDS: Sennosides/Docusate Sodium TABLET PO SCH (09:19)
[2020-06-10] MEDS: Ondansetron 4 MG/2 ML VIAL IVP SCH (09:28)
[2020-06-11] MEDS: Morphine Sulfate 2 MG/ML SYRINGE IVP PRN (00:27)
[2020-06-11] MEDS: Pantoprazole 40 MG VIAL IVP SCH (05:41)
[2020-06-11] MEDS: *HR* Heparin 5,000 UNIT/ML VIAL SQ SCH (05:41)
[2020-06-11 06:02] LABS: Basophils % 0.5 %; Eosinophils # 0.2 K/mcL (0.0-0.6); Eosinophils % 3.9 %; Hematocrit 36.9 % (35.3-44.9); Hemoglobin 11.9 g/dL (11.5-15.4); Immature Granulocytes % 0.3 % (0-4); Lymphocytes # 1.5 K/mcL (0.6-4.6); Lymphocytes % 25.7 %; Mean Corpuscular HGB Conc 32.2 g/dL (31.6-35.5); Mean Corpuscular Hemoglobin 28.3 pg (28.0-33.3); Mean Corpuscular Volume 87.9 fL (83.0-100.0); Mean Platelet Volume 11.7 fL (9.4-12.4); Monocytes # 0.6 K/mcL (0.0-1.3); Monocytes % 9.6 %; Neutrophils # 3.6 K/mcL (1.6-8.9); Platelet Count 230 K/mcL (140-400); Red Cell Distribution Width 14.9 % (11.5-14.5)
[2020-06-11 06:23] LABS: BUN/Creatinine Ratio 5 (6-26); Blood Urea Nitrogen 4 mg/dL (8-23); Carbon Dioxide 24 mEq/L (23-29); Chloride 108 mEq/L (98-107); Glucose 97 mg/dL (70-105); Magnesium 1.5 mg/dL (1.6-2.6); Osmolality,Calculated 283 (280-300); Potassium 3.1 mEq/L (3.5-5.1); Sodium 138 mEq/L (136-145); eGFR For African Americans > 60 (> 60); eGFR For Non-African Americans > 60 (> 60)
[2020-06-11] MEDS ORDERED: Potassium Chloride 40 MEQ, Lidocaine 1% 2 ML in 0.9 % Sodium Chloride 500 ML IVPB ONE (07:38)
[2020-06-11] MEDS: Loratadine 10 MG TABLET PO SCH (08:18)
[2020-06-11] MEDS: ALPRAZolam 1 MG TABLET PO SCH (08:19)
[2020-06-11] MEDS: Gabapentin 300 MG CAPSULE PO SCH (08:19)
[2020-06-11 10:51] VITALS: BP 110/77
== END 2020-06-11 13:37 | disposition home or self-care (01) | DRG 252 ==
LOC: 3ANU 14:51 → EMEROOARM 14:51 → 3BNU 14:51 → 3ANU 21:42
PROVIDERS: ADMIT Surgery; ATTEND Surgery

== ENCOUNTER 2020-06-17 10:27 | Observation (INO) ==
[2020-06-17] MEDS ORDERED: 0.9 % Sodium Chloride 1,000 ML IVC ONE (10:43)
[2020-06-17] MEDS ORDERED: Isovue-370 500 ML BOTTLE IVP ONE ×2 (10:43→10:47)
[2020-06-17] MEDS ORDERED: Ondansetron 4 MG/2 ML VIAL IVP ONE ×2 (10:43→12:19)
[2020-06-17] MEDS ORDERED: GI Cocktail 40 ML EACH PO ONE (10:45)
[2020-06-17 11:10] LABS: Bacteria,Urine Few per hpf (None-Few); Bilirubin,Urine Negative (Negative); Blood,Urine Negative (Negative); Clarity,Urine Turbid (Clear); Color,Urine Yellow (Yellow); Glucose,Urine (UA) Normal (Normal); Ketones,Urine 40 mg/dL (Negative); Leukocyte Esterase,Urine Trace (Negative); Mucus,Urine Few per lpf (None-Few); Nitrite,Urine Negative (Negative); PH,Urine 6.5 pH Units (5.0-8.0); Protein,Urine 70 mg/dL (Neg-Trace); RBC,Urine 0-3 per hpf (0-3); Specific Gravity,Urine 1.022 (1.010-1.025); Squamous Epithelial Cell,Urine Many per hpf (None-Few)
[2020-06-17 11:11] LABS: Basophils % 0.1 %; Hematocrit 44.6 % (35.3-44.9); Hemoglobin 14.8 g/dL (11.5-15.4); Immature Granulocytes % 0.3 % (0-4); Lymphocytes # 0.9 K/mcL (0.6-4.6); Lymphocytes % 10.3 %; Mean Corpuscular HGB Conc 33.2 g/dL (31.6-35.5); Mean Corpuscular Hemoglobin 27.9 pg (28.0-33.3); Mean Platelet Volume 11.1 fL (9.4-12.4); Monocytes # 0.5 K/mcL (0.0-1.3); Monocytes % 5.6 %; Neutrophils # 7.2 K/mcL (1.6-8.9); Platelet Count 283 K/mcL (140-400); Red Blood Count 5.31 M/mcL (3.82-4.97); Red Cell Distribution Width 14.8 % (11.5-14.5); Segmented Neutrophils % 83.7 %; White Blood Count 8.6 K/mcL (4.3-11.1)
[2020-06-17 11:35] LABS: Alanine Aminotransferase 13 Units/L (7-52); Albumin 4.1 g/dL (3.5-5.7); Albumin/Globulin Ratio 1.2 (1.1-2.2); Alkaline Phosphatase 50 Units/L (34-104); Aspartate Amino Transferase 12 Units/L (13-39); BUN/Creatinine Ratio 14 (6-26); Bilirubin,Direct 0.1 mg/dL (0.0-0.2); Bilirubin,Indirect 0.4 mg/dL (0.0-1.0); Bilirubin,Total 0.5 mg/dL (0.3-1.0); Blood Urea Nitrogen 11 mg/dL (8-23); Calcium 9.4 mg/dL (8.6-10.3); Carbon Dioxide 24 mEq/L (23-29); Chloride 102 mEq/L (98-107); Globulin 3.4 g/dL (2.4-3.5); Glucose 127 mg/dL (70-105); Lipase 22 Units/L (11-82); Magnesium 1.7 mg/dL (1.6-2.6); Osmolality,Calculated 287 (280-300); Potassium 2.7 mEq/L (3.5-5.1); Sodium 138 mEq/L (136-145); Total Protein 7.5 g/dL (6.4-8.9); Troponin I < 0.03 ng/mL (< 0.04); eGFR For African Americans > 60 (> 60); eGFR For Non-African Americans > 60 (> 60)
[2020-06-17] MEDS ORDERED: Ondansetron 4 MG/2 ML VIAL ONE (12:20)
[2020-06-17] MEDS ORDERED: *HR* FentaNYL (PF) 100 MCG/2 ML VIAL IVP ONE ×2 (12:49→14:34)
[2020-06-17] MEDS ORDERED: Potassium Chloride Elixir 20 MEQ/15 ML UDC PO ONE (14:26)
[2020-06-17] MEDS ORDERED: Ondansetron 4 MG/2 ML VIAL IVP PRN (14:29)
[2020-06-17] MEDS ORDERED: Naloxone 0.4 MG/ML INJ IVP PRN ×2 (14:29→14:51)
[2020-06-17] MEDS ORDERED: Milk and Molasses Enema 200 ML RC ONE (14:29)
[2020-06-17] MEDS ORDERED: Melatonin 3 MG TABLET PO PRN (14:29)
[2020-06-17] MEDS ORDERED: 0.9 % Sodium Chloride 1,000 ML IVC SCH (14:30)
[2020-06-17] MEDS ORDERED: D10% in Water 500 ML IVC PRN (16:52)
[2020-06-17] MEDS ORDERED: Lidocaine -MPF 1% 5 ML AMPUL INFILT ONE (17:01)
[2020-06-17 17:21] LABS: Estimated Average Glucose 128 mg/dl; Hemoglobin A1C 6.1 %
[2020-06-17] MEDS: Pantoprazole 40 MG VIAL IVP SCH (18:18)
[2020-06-17] MEDS: *HR* Heparin 5,000 UNIT/ML VIAL SQ SCH (18:18)
[2020-06-17] MEDS: Ketorolac 15 MG/ML VIAL IVP PRN (18:19)
[2020-06-17] MEDS: ALPRAZolam 1 MG TABLET PO SCH (20:37)
[2020-06-17] MEDS: Gabapentin 300 MG CAPSULE PO SCH (20:38)
[2020-06-17] MEDS: *HR* HYDROmorphone (PF) 1 MG/ML SYRINGE IVP PRN (22:02)
[2020-06-18] MEDS: *HR* Heparin 5,000 UNIT/ML VIAL SQ SCH ×2 (05:44→16:55)
[2020-06-18] MEDS: Pantoprazole 40 MG VIAL IVP SCH ×2 (05:44→16:55)
[2020-06-18] MEDS ORDERED: Prochlorperazine 10 MG/2 ML VIAL IVP ONE (05:47)
[2020-06-18 06:09] LABS: Basophils % 0.3 %; Eosinophils # 0.1 K/mcL (0.0-0.6); Eosinophils % 1.5 %; Hematocrit 41.1 % (35.3-44.9); Hemoglobin 13.5 g/dL (11.5-15.4); Immature Granulocytes % 0.2 % (0-4); Lymphocytes # 2.3 K/mcL (0.6-4.6); Lymphocytes % 24.9 %; Mean Corpuscular HGB Conc 32.8 g/dL (31.6-35.5); Mean Corpuscular Hemoglobin 28.7 pg (28.0-33.3); Mean Corpuscular Volume 87.4 fL (83.0-100.0); Mean Platelet Volume 11.4 fL (9.4-12.4); Monocytes # 0.9 K/mcL (0.0-1.3); Monocytes % 9.4 %; Platelet Count 251 K/mcL (140-400); Red Cell Distribution Width 15.1 % (11.5-14.5); Segmented Neutrophils % 63.7 %; White Blood Count 9.4 K/mcL (4.3-11.1)
[2020-06-18] MEDS: *HR* HYDROmorphone (PF) 1 MG/ML SYRINGE IVP PRN ×4 (06:13→21:12)
[2020-06-18 06:29] LABS: Alanine Aminotransferase 13 Units/L (7-52); Albumin 3.6 g/dL (3.5-5.7); Albumin/Globulin Ratio 1.3 (1.1-2.2); Alkaline Phosphatase 44 Units/L (34-104); Aspartate Amino Transferase 13 Units/L (13-39); BUN/Creatinine Ratio 13 (6-26); Bilirubin,Total 0.4 mg/dL (0.3-1.0); Blood Urea Nitrogen 11 mg/dL (8-23); Calcium 8.7 mg/dL (8.6-10.3); Carbon Dioxide 24 mEq/L (23-29); Chloride 105 mEq/L (98-107); Globulin 2.8 g/dL (2.4-3.5); Glucose 98 mg/dL (70-105); Magnesium 1.8 mg/dL (1.6-2.6); Osmolality,Calculated 287 (280-300); Phosphorous 2.8 mg/dL (2.7-4.5); Potassium 2.8 mEq/L (3.5-5.1); Sodium 139 mEq/L (136-145); Total Protein 6.4 g/dL (6.4-8.9); eGFR For African Americans > 60 (> 60); eGFR For Non-African Americans > 60 (> 60)
[2020-06-18] MEDS ORDERED: Potassium Chloride Elixir 20 MEQ/15 ML UDC PO ONE (07:54)
[2020-06-18] MEDS ORDERED: Potassium Chloride 40 MEQ, Lidocaine 1% 2 ML in 0.9 % Sodium Chloride 500 ML IVPB ONE (07:55)
[2020-06-18] MEDS: ALPRAZolam 1 MG TABLET PO SCH ×2 (08:54→19:58)
[2020-06-18] MEDS: Gabapentin 300 MG CAPSULE PO SCH ×3 (09:12→19:59)
[2020-06-18] MEDS: Tiotropium 10 INH DOSE IH SCH (10:32)
[2020-06-18] MEDS ORDERED: Milk and Molasses Enema 200 ML RC ONE (11:24)
[2020-06-18] MEDS ORDERED: Ondansetron 4 MG/2 ML VIAL IVP SCH (12:00)
[2020-06-18] MEDS ORDERED: D10% in Water 500 ML IVC PRN (12:03)
[2020-06-18] MEDS ORDERED: D5% in Water 1,000 ML IVC PRN (14:35)
[2020-06-18] MEDS ORDERED: Dextrose Gel 15 GM/37.5 ML TUBE PO PRN ×2 (14:35)
[2020-06-18] MEDS ORDERED: *HR* Dextrose 50 % in Water (Vial) 50 ML VIAL IVP PRN (14:35)
[2020-06-18] MEDS: D5% in 0.45% NACL w KCl 20 MEQ/1,000 ML MLS IVC SCH (15:27)
[2020-06-18] MEDS: Bisacodyl 10 MG RECTAL SUPPOSITORY RC SCH (16:56)
[2020-06-18] MEDS ORDERED: Clinimix E 5%-15% SOLUTION 2,000 ML IVC SCH (17:00)
[2020-06-18] MEDS: Insulin LISPRO 300 UNITS/3 ML VIAL SUBQ SCH ×2 (17:03→19:57)
[2020-06-18] MEDS ORDERED: Insulin LISPRO 300 UNITS/3 ML VIAL SUBQ SCH (18:00)
[2020-06-18] MEDS: Ondansetron ODT 4 MG TAB.RAPDIS SL PRN (19:58)
[2020-06-19] MEDS: Insulin LISPRO 300 UNITS/3 ML VIAL SUBQ SCH ×6 (00:13→20:18)
[2020-06-19] MEDS: D5% in 0.45% NACL w KCl 20 MEQ/1,000 ML MLS IVC SCH ×2 (01:57→12:18)
[2020-06-19] MEDS: Pantoprazole 40 MG VIAL IVP SCH ×2 (05:23→17:16)
[2020-06-19] MEDS: *HR* Heparin 5,000 UNIT/ML VIAL SQ SCH ×2 (05:23→17:17)
[2020-06-19] MEDS: *HR* HYDROmorphone (PF) 1 MG/ML SYRINGE IVP PRN ×5 (05:24→22:09)
[2020-06-19 05:51] LABS: Basophils % 0.4 %; Eosinophils # 0.3 K/mcL (0.0-0.6); Eosinophils % 3.1 %; Hematocrit 37.7 % (35.3-44.9); Hemoglobin 12.2 g/dL (11.5-15.4); Immature Granulocytes % 0.4 % (0-4); Lymphocytes # 1.3 K/mcL (0.6-4.6); Lymphocytes % 16.3 %; Mean Corpuscular HGB Conc 32.4 g/dL (31.6-35.5); Mean Corpuscular Hemoglobin 28.4 pg (28.0-33.3); Mean Corpuscular Volume 87.9 fL (83.0-100.0); Mean Platelet Volume 11.1 fL (9.4-12.4); Monocytes # 0.9 K/mcL (0.0-1.3); Monocytes % 11.4 %; Neutrophils # 5.6 K/mcL (1.6-8.9); Platelet Count 214 K/mcL (140-400); Red Blood Count 4.29 M/mcL (3.82-4.97); Red Cell Distribution Width 15.1 % (11.5-14.5); Segmented Neutrophils % 68.4 %; White Blood Count 8.2 K/mcL (4.3-11.1)
[2020-06-19] MEDS: Gabapentin 300 MG CAPSULE PO SCH ×3 (09:18→20:18)
[2020-06-19] MEDS: Ondansetron ODT 4 MG TAB.RAPDIS SL PRN (09:28)
[2020-06-19] MEDS: ALPRAZolam 1 MG TABLET PO SCH ×2 (09:28→20:21)
[2020-06-19] MEDS: Bisacodyl 10 MG RECTAL SUPPOSITORY RC SCH (09:28)
[2020-06-19 10:01] LABS: Alanine Aminotransferase 14 Units/L (7-52); Albumin 3.2 g/dL (3.5-5.7); Albumin/Globulin Ratio 1.3 (1.1-2.2); Alkaline Phosphatase 39 Units/L (34-104); Aspartate Amino Transferase 13 Units/L (13-39); BUN/Creatinine Ratio 11 (6-26); Bilirubin,Total 0.3 mg/dL (0.3-1.0); Blood Urea Nitrogen 8 mg/dL (8-23); Calcium 8.1 mg/dL (8.6-10.3); Carbon Dioxide 25 mEq/L (23-29); Chloride 107 mEq/L (98-107); Globulin 2.5 g/dL (2.4-3.5); Glucose 85 mg/dL (70-105); Osmolality,Calculated 286 (280-300); Potassium 3.1 mEq/L (3.5-5.1); Sodium 139 mEq/L (136-145); Total Protein 5.7 g/dL (6.4-8.9); eGFR For African Americans > 60 (> 60); eGFR For Non-African Americans > 60 (> 60)
[2020-06-19 10:02] LABS: Magnesium 1.8 mg/dL (1.6-2.6); Phosphorous 2.9 mg/dL (2.7-4.5)
[2020-06-19] MEDS: Tiotropium 10 INH DOSE IH SCH (10:17)
[2020-06-19] MEDS ORDERED: Milk and Molasses Enema 200 ML RC ONE (16:02)
[2020-06-19] MEDS: Ondansetron ODT 4 MG TAB.RAPDIS SL SCH (16:30)
[2020-06-19] MEDS ORDERED: Clinimix E 5%-15% SOLUTION 2,000 ML IVC SCH (17:00)
[2020-06-19] MEDS ORDERED: Simethicone 80 MG TAB.CHEW PO ONE (20:48)
[2020-06-19] MEDS ORDERED: Metoclopramide 10 MG/2 ML VIAL IVP ONE (21:00)
[2020-06-20] MEDS: D5% in 0.45% NACL w KCl 20 MEQ/1,000 ML MLS IVC SCH ×2 (01:50→12:42)
[2020-06-20] MEDS: Insulin LISPRO 300 UNITS/3 ML VIAL SUBQ SCH ×6 (01:51→20:43)
[2020-06-20] MEDS: *HR* HYDROmorphone (PF) 1 MG/ML SYRINGE IVP PRN ×5 (03:41→20:26)
[2020-06-20] MEDS: Pantoprazole 40 MG VIAL IVP SCH ×2 (05:43→17:36)
[2020-06-20] MEDS: *HR* Heparin 5,000 UNIT/ML VIAL SQ SCH ×2 (05:43→17:36)
[2020-06-20 06:20] LABS: BUN/Creatinine Ratio 15 (6-26); Blood Urea Nitrogen 9 mg/dL (8-23); Calcium 7.9 mg/dL (8.6-10.3); Carbon Dioxide 23 mEq/L (23-29); Chloride 105 mEq/L (98-107); Glucose 88 mg/dL (70-105); Magnesium 1.8 mg/dL (1.6-2.6); Osmolality,Calculated 278 (280-300); Phosphorous 3.1 mg/dL (2.7-4.5); Potassium 3.1 mEq/L (3.5-5.1); Sodium 135 mEq/L (136-145); eGFR For African Americans > 60 (> 60); eGFR For Non-African Americans > 60 (> 60)
[2020-06-20] MEDS ORDERED: Potassium Chloride 40 MEQ, Lidocaine 1% 2 ML in 0.9 % Sodium Chloride 500 ML IVPB ONE (07:38)
[2020-06-20] MEDS: Tiotropium 10 INH DOSE IH SCH (07:43)
[2020-06-20] MEDS: Bisacodyl 10 MG RECTAL SUPPOSITORY RC SCH (07:51)
[2020-06-20] MEDS: Ondansetron ODT 4 MG TAB.RAPDIS SL SCH ×3 (07:51→16:16)
[2020-06-20] MEDS: cefTRIAXone 1,000 MG in Water for inj. (sterile) 10 ML IVP SCH (09:28)
[2020-06-20] MEDS: Gabapentin 300 MG CAPSULE PO SCH ×3 (09:29→20:29)
[2020-06-20] MEDS: ALPRAZolam 1 MG TABLET PO SCH ×2 (09:29→20:29)
[2020-06-20] MEDS ORDERED: Clinimix E 5%-15% SOLUTION 2,000 ML with MVI, adult with vitamin K 10 ML IVC SCH (17:00)
[2020-06-21] MEDS: D5% in 0.45% NACL w KCl 20 MEQ/1,000 ML MLS IVC SCH ×2 (00:20→13:04)
[2020-06-21] MEDS: Insulin LISPRO 300 UNITS/3 ML VIAL SUBQ SCH ×6 (00:23→20:17)
[2020-06-21] MEDS: *HR* HYDROmorphone (PF) 1 MG/ML SYRINGE IVP PRN ×6 (00:43→21:10)
[2020-06-21] MEDS: Pantoprazole 40 MG VIAL IVP SCH ×2 (04:47→17:33)
[2020-06-21] MEDS: *HR* Heparin 5,000 UNIT/ML VIAL SQ SCH ×2 (04:47→17:34)
[2020-06-21 05:32] LABS: BUN/Creatinine Ratio 18 (6-26); Blood Urea Nitrogen 11 mg/dL (8-23); Calcium 7.9 mg/dL (8.6-10.3); Carbon Dioxide 22 mEq/L (23-29); Chloride 106 mEq/L (98-107); Glucose 103 mg/dL (70-105); Magnesium 1.6 mg/dL (1.6-2.6); Osmolality,Calculated 278 (280-300); Phosphorous 2.4 mg/dL (2.7-4.5); Potassium 3.3 mEq/L (3.5-5.1); Sodium 134 mEq/L (136-145); eGFR For African Americans > 60 (> 60); eGFR For Non-African Americans > 60 (> 60)
[2020-06-21] MEDS: Tiotropium 10 INH DOSE IH SCH (07:38)
[2020-06-21] MEDS: cefTRIAXone 1,000 MG in Water for inj. (sterile) 10 ML IVP SCH (08:55)
[2020-06-21] MEDS: Ondansetron ODT 4 MG TAB.RAPDIS SL SCH ×3 (08:55→16:58)
[2020-06-21] MEDS: Bisacodyl 10 MG RECTAL SUPPOSITORY RC SCH (08:56)
[2020-06-21] MEDS: Gabapentin 300 MG CAPSULE PO SCH ×3 (08:56→20:18)
[2020-06-21] MEDS: ALPRAZolam 1 MG TABLET PO SCH ×2 (08:58→20:18)
[2020-06-21] MEDS ORDERED: Scopolamine Patch 1.5 MG PATCH.TD72 TD ONE (15:37)
[2020-06-21] MEDS ORDERED: Clinimix E 5%-15% SOLUTION 2,000 ML IVC SCH (17:00)
[2020-06-21] MEDS: Ketorolac 15 MG/ML VIAL IVP PRN (18:57)
[2020-06-22] MEDS: Insulin LISPRO 300 UNITS/3 ML VIAL SUBQ SCH ×6 (00:09→20:34)
[2020-06-22] MEDS: *HR* HYDROmorphone (PF) 1 MG/ML SYRINGE IVP PRN ×5 (01:19→22:10)
[2020-06-22 04:28] LABS: BUN/Creatinine Ratio 23 (6-26); Blood Urea Nitrogen 16 mg/dL (8-23); Carbon Dioxide 21 mEq/L (23-29); Chloride 106 mEq/L (98-107); Glucose 84 mg/dL (70-105); Osmolality,Calculated 282 (280-300); Phosphorous 3.2 mg/dL (2.7-4.5); Potassium 3.2 mEq/L (3.5-5.1); Sodium 136 mEq/L (136-145); eGFR For African Americans > 60 (> 60); eGFR For Non-African Americans > 60 (> 60)
[2020-06-22] MEDS: *HR* Heparin 5,000 UNIT/ML VIAL SQ SCH ×2 (05:07→17:16)
[2020-06-22] MEDS: Pantoprazole 40 MG VIAL IVP SCH ×2 (05:07→17:16)
[2020-06-22] MEDS: Ketorolac 15 MG/ML VIAL IVP PRN (05:15)
[2020-06-22] MEDS: Tiotropium 10 INH DOSE IH SCH (07:47)
[2020-06-22] MEDS: D5% in 0.45% NACL w KCl 20 MEQ/1,000 ML MLS IVC SCH ×2 (07:56→10:02)
[2020-06-22] MEDS: cefTRIAXone 1,000 MG in Water for inj. (sterile) 10 ML IVP SCH (08:01)
[2020-06-22] MEDS: ALPRAZolam 1 MG TABLET PO SCH ×2 (08:02→20:35)
[2020-06-22] MEDS: Bisacodyl 10 MG RECTAL SUPPOSITORY RC SCH (08:02)
[2020-06-22] MEDS: Ondansetron ODT 4 MG TAB.RAPDIS SL SCH ×3 (08:02→17:16)
[2020-06-22] MEDS: Gabapentin 300 MG CAPSULE PO SCH ×3 (08:03→20:36)
[2020-06-22] MEDS ORDERED: Clinimix E 5%-15% SOLUTION 2,000 ML with MVI, adult with vitamin K 10 ML IVC SCH (17:00)
[2020-06-23] MEDS: Insulin LISPRO 300 UNITS/3 ML VIAL SUBQ SCH ×3 (01:26→08:51)
[2020-06-23] MEDS: *HR* HYDROmorphone (PF) 1 MG/ML SYRINGE IVP PRN ×2 (02:10→06:38)
[2020-06-23 04:05] LABS: BUN/Creatinine Ratio 26 (6-26); Blood Urea Nitrogen 16 mg/dL (8-23); Carbon Dioxide 23 mEq/L (23-29); Chloride 106 mEq/L (98-107); Glucose 106 mg/dL (70-105); Magnesium 1.9 mg/dL (1.6-2.6); Osmolality,Calculated 284 (280-300); Phosphorous 2.9 mg/dL (2.7-4.5); Potassium 3.3 mEq/L (3.5-5.1); Sodium 136 mEq/L (136-145); eGFR For African Americans > 60 (> 60); eGFR For Non-African Americans > 60 (> 60)
[2020-06-23] MEDS: Pantoprazole 40 MG VIAL IVP SCH (05:13)
[2020-06-23] MEDS: *HR* Heparin 5,000 UNIT/ML VIAL SQ SCH (05:13)
[2020-06-23] MEDS: D5% in 0.45% NACL w KCl 20 MEQ/1,000 ML MLS IVC SCH (07:20)
[2020-06-23 07:22] VITALS: BP 110/76
[2020-06-23] MEDS: Tiotropium 10 INH DOSE IH SCH (08:09)
[2020-06-23] MEDS: cefTRIAXone 1,000 MG in Water for inj. (sterile) 10 ML IVP SCH (08:50)
[2020-06-23] MEDS: ALPRAZolam 1 MG TABLET PO SCH (08:50)
[2020-06-23] MEDS: Ondansetron ODT 4 MG TAB.RAPDIS SL SCH (08:50)
[2020-06-23] MEDS: Gabapentin 300 MG CAPSULE PO SCH (08:51)
[2020-06-23] MEDS: Bisacodyl 10 MG RECTAL SUPPOSITORY RC SCH (08:51)
== END 2020-06-23 09:52 | disposition home health service (06) ==
LOC: 3ANU 10:27 → EMEROOARM 10:27 → 3ANU 13:33
PROVIDERS: ADMIT Surgery; ATTEND Surgery

== ENCOUNTER 2020-06-29 16:03 | Inpatient (IN) ==
[2020-06-29] MEDS ORDERED: *HR* FentaNYL (PF) 100 MCG/2 ML VIAL IVP ONE ×2 (16:38→19:59)
[2020-06-29 16:51] LABS: Basophils # 0.1 K/mcL (0.0-0.2); Basophils % 0.6 %; Eosinophils # 0.3 K/mcL (0.0-0.6); Eosinophils % 2.5 %; Hematocrit 39.3 % (35.3-44.9); Immature Granulocytes % 0.7 % (0-4); Lymphocytes # 2.2 K/mcL (0.6-4.6); Lymphocytes % 21.8 %; Mean Corpuscular HGB Conc 33.1 g/dL (31.6-35.5); Mean Corpuscular Volume 87.7 fL (83.0-100.0); Mean Platelet Volume 10.6 fL (9.4-12.4); Monocytes # 1.2 K/mcL (0.0-1.3); Neutrophils # 6.3 K/mcL (1.6-8.9); Platelet Count 263 K/mcL (140-400); Red Blood Count 4.48 M/mcL (3.82-4.97); Red Cell Distribution Width 14.5 % (11.5-14.5); Segmented Neutrophils % 62.4 %; White Blood Count 10.1 K/mcL (4.3-11.1)
[2020-06-29 16:55] LABS: Bilirubin,Urine Negative (Negative); Blood,Urine Negative (Negative); Clarity,Urine Clear (Clear); Color,Urine Light-Yellow (Yellow); Glucose,Urine (UA) Normal (Normal); Ketones,Urine Negative (Negative); Leukocyte Esterase,Urine Negative (Negative); Nitrite,Urine Negative (Negative); PH,Urine 6.5 pH Units (5.0-8.0); Protein,Urine Trace mg/dL (Neg-Trace); Specific Gravity,Urine 1.014 (1.010-1.025); Urobilinogen,Urine Normal (Normal)
[2020-06-29 16:58] LABS: INR 1.2; Prothrombin Time 13.9 Seconds (9.4-12.1)
[2020-06-29 17:01] LABS: Activated Partial Thrombo Time 26.1 Seconds (26.0-36.0)
[2020-06-29 17:08] LABS: Alanine Aminotransferase 38 Units/L (7-52); Albumin 3.4 g/dL (3.5-5.7); Albumin/Globulin Ratio 1.2 (1.1-2.2); Alkaline Phosphatase 61 Units/L (34-104); Aspartate Amino Transferase 15 Units/L (13-39); BUN/Creatinine Ratio 14 (6-26); Bilirubin,Direct 0.1 mg/dL (0.0-0.2); Bilirubin,Indirect 0.4 mg/dL (0.0-1.0); Bilirubin,Total 0.5 mg/dL (0.3-1.0); Blood Urea Nitrogen 13 mg/dL (8-23); Calcium 8.6 mg/dL (8.6-10.3); Carbon Dioxide 25 mEq/L (23-29); Chloride 101 mEq/L (98-107); Globulin 2.8 g/dL (2.4-3.5); Glucose 110 mg/dL (70-105); Lipase 37 Units/L (11-82); Osmolality,Calculated 279 (280-300); Potassium 2.8 mEq/L (3.5-5.1); Sodium 134 mEq/L (136-145); Total Protein 6.2 g/dL (6.4-8.9); Troponin I 0.03 ng/mL (< 0.04); eGFR For African Americans > 60 (> 60); eGFR For Non-African Americans > 60 (> 60)
[2020-06-29] MEDS ORDERED: Isovue-370 500 ML BOTTLE IVP ONE (17:52)
[2020-06-29] MEDS ORDERED: 0.9 % Sodium Chloride 1,000 ML IVC ONE ×2 (19:59→21:33)
[2020-06-29] MEDS ORDERED: Ondansetron 4 MG/2 ML VIAL IVP ONE (19:59)
[2020-06-29] MEDS ORDERED: Ondansetron 4 MG/2 ML VIAL IVP PRN (22:08)
[2020-06-29] MEDS ORDERED: Naloxone 0.4 MG/ML INJ IVP PRN (22:08)
[2020-06-29] MEDS ORDERED: Melatonin 3 MG TABLET PO PRN (22:08)
[2020-06-29] MEDS ORDERED: *HR* Promethazine 25 MG/ML VIAL IM PRN (22:08)
[2020-06-29] MEDS ORDERED: Potassium Chloride 20 MEQ, Lidocaine 1% 2 ML in 0.9 % Sodium Chloride 250 ML IVPB ONE (22:12)
[2020-06-29] MEDS ORDERED: 0.9 % Sodium Chloride 1,000 ML IVC SCH (22:15)
[2020-06-29] MEDS: *HR* Heparin 5,000 UNIT/ML VIAL SQ SCH (23:16)
[2020-06-30] MEDS: *HR* HYDROmorphone (PF) 1 MG/ML SYRINGE IVP PRN ×3 (00:01→08:35)
[2020-06-30] MEDS: *HR* Heparin 5,000 UNIT/ML VIAL SQ SCH ×3 (05:42→21:49)
[2020-06-30] MEDS ORDERED: Pantoprazole 40 MG VIAL IVP SCH (06:00)
[2020-06-30 06:20] LABS: Hematocrit 35.5 % (35.3-44.9); Mean Corpuscular HGB Conc 31.8 g/dL (31.6-35.5); Mean Corpuscular Hemoglobin 28.5 pg (28.0-33.3); Mean Corpuscular Volume 89.6 fL (83.0-100.0); Mean Platelet Volume 10.7 fL (9.4-12.4); Platelet Count 233 K/mcL (140-400); Red Blood Count 3.96 M/mcL (3.82-4.97); Red Cell Distribution Width 14.7 % (11.5-14.5)
[2020-06-30 06:21] LABS: Hemoglobin 11.3 g/dL (11.5-15.4)
[2020-06-30 06:24] LABS: BUN/Creatinine Ratio 11 (6-26); Blood Urea Nitrogen 9 mg/dL (8-23); Carbon Dioxide 23 mEq/L (23-29); Chloride 109 mEq/L (98-107); Glucose 98 mg/dL (70-105); Osmolality,Calculated 285 (280-300); Sodium 138 mEq/L (136-145); eGFR For African Americans > 60 (> 60); eGFR For Non-African Americans > 60 (> 60)
[2020-06-30] MEDS: Multivit/Ca/Min/Fe/FA 1 TAB TABLET PO SCH (08:32)
[2020-06-30 08:56] LABS: Magnesium 1.8 mg/dL (1.6-2.6); Phosphorous 4.1 mg/dL (2.7-4.5)
[2020-06-30] MEDS: Calcium Gluconate 1gm/50mL 1 GM/50 ML BAG IVPB SCH (09:39)
[2020-06-30] MEDS ORDERED: D10% in Water 500 ML IVC PRN (11:17)
[2020-06-30 11:28] LABS: Adenovirus Not Detected (Not Detect); Bordetella Pertussis Not Detected (Not Detect); Chlamydophila pneumoniae Not Detected (Not Detect); Coronavirus 229E Not Detected (Not Detect); Coronavirus HKU1 Not Detected (Not Detect); Coronavirus NL63 Not Detected (Not Detect); Coronavirus OC43 Not Detected (Not Detect); Human Metapneumovirus Not Detected (Not Detect); Human Rhinovirus/Enterovirus Not Detected (Not Detect); Influenza A Subtype 2009 H1 Not Detected (Not Detect); Influenza B Not Detected (Not Detect); Mycoplasma pneumoniae Not Detected (Not Detect); Parainfluenza Virus 1 Not Detected (Not Detect); Parainfluenza Virus 2 Not Detected (Not Detect); Parainfluenza Virus 3 Not Detected (Not Detect); Parainfluenza Virus 4 Not Detected (Not Detect); Respiratory Syncytial Virus Not Detected (Not Detect); SARS-CoV-2 Not Detected (Not Detect)
[2020-06-30] MEDS ORDERED: *HR* Propofol 200 MG/20 ML VIAL IVP ONE (12:09)
[2020-06-30] MEDS ORDERED: Lidocaine -MPF 2% 5 ML VIAL SQ ONE (12:09)
[2020-06-30] MEDS ORDERED: Pantoprazole 40 MG VIAL IVP ONE (12:46)
[2020-06-30] MEDS ORDERED: Pantoprazole 40 MG in 0.9 % Sodium Chloride Mini Bag 100 ML IVC SCH (13:00)
[2020-06-30] MEDS ORDERED: Acetaminophen IV 1,000 MG/100 ML BAG IVPB SCH (14:45)
[2020-06-30] MEDS ORDERED: Gabapentin 300 MG CAPSULE PO SCH (15:00)
[2020-06-30] MEDS ORDERED: Clinimix E 5%-15% SOLUTION 2,000 ML IVC SCH (17:00)
[2020-06-30] MEDS: Insulin LISPRO 300 UNITS/3 ML VIAL SUBQ SCH ×2 (17:22→21:50)
[2020-06-30] MEDS: ALPRAZolam 1 MG TABLET PO SCH (21:48)
[2020-06-30] MEDS: Acetaminophen IV 1,000 MG/100 ML BAG IVPB SCH (21:49)
[2020-06-30] MEDS: Gabapentin 300 MG CAPSULE PO SCH (21:49)
[2020-07-01] MEDS: Acetaminophen IV 1,000 MG/100 ML BAG IVPB SCH ×5 (00:32→21:27)
[2020-07-01] MEDS: *HR* Heparin 5,000 UNIT/ML VIAL SQ SCH ×3 (05:49→21:30)
[2020-07-01 06:25] LABS: BUN/Creatinine Ratio 15 (6-26); Blood Urea Nitrogen 12 mg/dL (8-23); Calcium 8.2 mg/dL (8.6-10.3); Carbon Dioxide 23 mEq/L (23-29); Chloride 110 mEq/L (98-107); Glucose 103 mg/dL (70-105); Magnesium 1.7 mg/dL (1.6-2.6); Osmolality,Calculated 284 (280-300); Phosphorous 4.1 mg/dL (2.7-4.5); Potassium 3.3 mEq/L (3.5-5.1); Sodium 137 mEq/L (136-145); eGFR For African Americans > 60 (> 60); eGFR For Non-African Americans > 60 (> 60)
[2020-07-01] MEDS: Multivit/Ca/Min/Fe/FA 1 TAB TABLET PO SCH (08:46)
[2020-07-01] MEDS: Gabapentin 300 MG CAPSULE PO SCH ×3 (08:46→21:28)
[2020-07-01] MEDS: Pantoprazole 40 MG in 0.9 % Sodium Chloride Mini Bag 100 ML IVC SCH ×4 (08:47→23:49)
[2020-07-01] MEDS: ALPRAZolam 1 MG TABLET PO SCH ×3 (08:47→21:30)
[2020-07-01] MEDS ORDERED: Multivit/Ca/Min/Fe/FA 1 TAB TABLET PO SCH (09:00)
[2020-07-01] MEDS: Insulin LISPRO 300 UNITS/3 ML VIAL SUBQ SCH ×4 (09:02→21:32)
[2020-07-01] MEDS ORDERED: POTASSIUM CHLORIDE IN 0.9%NACL 40 MEQ/1,000 ML IV.SOLN IV ONE (09:27)
[2020-07-01 09:32] LABS: Basophils % 0.3 %; Eosinophils # 0.3 K/mcL (0.0-0.6); Eosinophils % 4.3 %; Hematocrit 37.7 % (35.3-44.9); Hemoglobin 12.1 g/dL (11.5-15.4); Immature Granulocytes % 0.5 % (0-4); Lymphocytes # 1.5 K/mcL (0.6-4.6); Lymphocytes % 24.5 %; Mean Corpuscular HGB Conc 32.1 g/dL (31.6-35.5); Mean Corpuscular Hemoglobin 29.2 pg (28.0-33.3); Mean Corpuscular Volume 91.1 fL (83.0-100.0); Mean Platelet Volume 11.3 fL (9.4-12.4); Monocytes # 0.5 K/mcL (0.0-1.3); Monocytes % 8.2 %; Neutrophils # 3.8 K/mcL (1.6-8.9); Platelet Count 267 K/mcL (140-400); Red Blood Count 4.14 M/mcL (3.82-4.97); Red Cell Distribution Width 14.8 % (11.5-14.5); Segmented Neutrophils % 62.2 %; White Blood Count 6.1 K/mcL (4.3-11.1)
[2020-07-01] MEDS: Calcium Gluconate 1gm/50mL 1 GM/50 ML BAG IVPB SCH ×2 (10:31→10:32)
[2020-07-01] MEDS: Tiotropium 10 INH DOSE IH SCH (11:09)
[2020-07-01] MEDS ORDERED: SCOP TP SCH (14:00)
[2020-07-01] MEDS ORDERED: Clinimix E 5%-15% SOLUTION 2,000 ML with MVI, adult with vitamin K 10 ML, Potassium C... IVC SCH (17:00)
[2020-07-02] MEDS: Acetaminophen IV 1,000 MG/100 ML BAG IVPB SCH ×4 (02:29→20:32)
[2020-07-02] MEDS: Pantoprazole 40 MG in 0.9 % Sodium Chloride Mini Bag 100 ML IVC SCH ×3 (04:48→07:27)
[2020-07-02 05:16] LABS: Hemoglobin 11.7 g/dL (11.5-15.4); Mean Corpuscular HGB Conc 31.6 g/dL (31.6-35.5); Mean Corpuscular Hemoglobin 28.5 pg (28.0-33.3); Platelet Count 273 K/mcL (140-400); Red Blood Count 4.11 M/mcL (3.82-4.97); White Blood Count 6.7 K/mcL (4.3-11.1)
[2020-07-02 05:29] LABS: BUN/Creatinine Ratio 21 (6-26); Blood Urea Nitrogen 16 mg/dL (8-23); Calcium 8.2 mg/dL (8.6-10.3); Carbon Dioxide 23 mEq/L (23-29); Chloride 109 mEq/L (98-107); Glucose 87 mg/dL (70-105); Magnesium 2.2 mg/dL (1.6-2.6); Osmolality,Calculated 285 (280-300); Phosphorous 3.6 mg/dL (2.7-4.5); Potassium 3.8 mEq/L (3.5-5.1); Sodium 137 mEq/L (136-145); eGFR For African Americans > 60 (> 60); eGFR For Non-African Americans > 60 (> 60)
[2020-07-02] MEDS: *HR* Heparin 5,000 UNIT/ML VIAL SQ SCH ×3 (06:17→22:29)
[2020-07-02] MEDS: Insulin LISPRO 300 UNITS/3 ML VIAL SUBQ SCH ×2 (07:52→11:47)
[2020-07-02] MEDS: Tiotropium 10 INH DOSE IH SCH (08:01)
[2020-07-02] MEDS: Calcium Gluconate 1gm/50mL 1 GM/50 ML BAG IVPB SCH ×2 (08:07→08:14)
[2020-07-02] MEDS: Multivit/Ca/Min/Fe/FA 1 TAB TABLET PO SCH (08:10)
[2020-07-02] MEDS: Gabapentin 300 MG CAPSULE PO SCH ×3 (08:10→20:34)
[2020-07-02] MEDS: ALPRAZolam 1 MG TABLET PO SCH ×3 (08:10→20:34)
[2020-07-02] MEDS ORDERED: Clinimix E 5%-15% SOLUTION 2,000 ML with MVI, adult with vitamin K 10 ML, Potassium C... IVC SCH (17:00)
[2020-07-03] MEDS: Acetaminophen IV 1,000 MG/100 ML BAG IVPB SCH ×4 (01:11→21:10)
[2020-07-03 03:33] LABS: Hematocrit 37.8 % (35.3-44.9); Hemoglobin 12.1 g/dL (11.5-15.4); Mean Corpuscular Hemoglobin 28.8 pg (28.0-33.3); Mean Platelet Volume 10.7 fL (9.4-12.4); Platelet Count 286 K/mcL (140-400); Red Cell Distribution Width 15.1 % (11.5-14.5)
[2020-07-03 03:51] LABS: BUN/Creatinine Ratio 24 (6-26); Blood Urea Nitrogen 17 mg/dL (8-23); Calcium 8.4 mg/dL (8.6-10.3); Carbon Dioxide 23 mEq/L (23-29); Chloride 108 mEq/L (98-107); Glucose 81 mg/dL (70-105); Magnesium 1.8 mg/dL (1.6-2.6); Osmolality,Calculated 285 (280-300); Phosphorous 3.9 mg/dL (2.7-4.5); Potassium 3.5 mEq/L (3.5-5.1); Sodium 137 mEq/L (136-145); eGFR For African Americans > 60 (> 60); eGFR For Non-African Americans > 60 (> 60)
[2020-07-03] MEDS: *HR* Heparin 5,000 UNIT/ML VIAL SQ SCH ×3 (05:47→21:12)
[2020-07-03] MEDS: Tiotropium 10 INH DOSE IH SCH (07:23)
[2020-07-03] MEDS: Gabapentin 300 MG CAPSULE PO SCH ×3 (08:09→21:11)
[2020-07-03] MEDS: Multivit/Ca/Min/Fe/FA 1 TAB TABLET PO SCH (08:11)
[2020-07-03] MEDS: ALPRAZolam 1 MG TABLET PO SCH ×3 (08:11→21:13)
[2020-07-03] MEDS: Calcium Gluconate 1gm/50mL 1 GM/50 ML BAG IVPB SCH ×2 (08:38→11:04)
[2020-07-03] MEDS ORDERED: Clinimix E 5%-15% SOLUTION 2,000 ML with MVI, adult with vitamin K 10 ML, Potassium C... IVC SCH (17:00)
[2020-07-04] MEDS: Acetaminophen IV 1,000 MG/100 ML BAG IVPB SCH ×4 (02:31→21:08)
[2020-07-04 07:24] LABS: Hematocrit 40.9 % (35.3-44.9); Mean Corpuscular HGB Conc 31.8 g/dL (31.6-35.5); Mean Corpuscular Hemoglobin 28.3 pg (28.0-33.3); Mean Corpuscular Volume 88.9 fL (83.0-100.0); Mean Platelet Volume 11.4 fL (9.4-12.4); Platelet Count 296 K/mcL (140-400); Red Cell Distribution Width 15.3 % (11.5-14.5)
[2020-07-04 07:25] LABS: White Blood Count 8.3 K/mcL (4.3-11.1)
[2020-07-04 07:54] LABS: BUN/Creatinine Ratio 24 (6-26); Blood Urea Nitrogen 17 mg/dL (8-23); Calcium 8.9 mg/dL (8.6-10.3); Carbon Dioxide 22 mEq/L (23-29); Chloride 108 mEq/L (98-107); Glucose 77 mg/dL (70-105); Magnesium 1.9 mg/dL (1.6-2.6); Osmolality,Calculated 288 (280-300); Phosphorous 3.5 mg/dL (2.7-4.5); Potassium 3.9 mEq/L (3.5-5.1); Sodium 139 mEq/L (136-145); eGFR For African Americans > 60 (> 60); eGFR For Non-African Americans > 60 (> 60)
[2020-07-04] MEDS: Ondansetron 4 MG/2 ML VIAL IVP PRN ×2 (08:23→18:09)
[2020-07-04] MEDS: *HR* Heparin 5,000 UNIT/ML VIAL SQ SCH ×3 (08:23→21:12)
[2020-07-04] MEDS: Tiotropium 10 INH DOSE IH SCH (10:16)
[2020-07-04] MEDS: Pantoprazole 40 MG in 0.9 % Sodium Chloride Mini Bag 100 ML IVC SCH ×2 (11:41→18:04)
[2020-07-04] MEDS: Multivit/Ca/Min/Fe/FA 1 TAB TABLET PO SCH (13:13)
[2020-07-04] MEDS: Gabapentin 300 MG CAPSULE PO SCH ×3 (13:13→21:06)
[2020-07-04] MEDS: ALPRAZolam 1 MG TABLET PO SCH ×3 (13:13→21:06)
[2020-07-04] MEDS ORDERED: Clinimix E 5%-15% SOLUTION 2,000 ML with MVI, adult with vitamin K 10 ML, Potassium C... IVC SCH (17:00)
[2020-07-05] MEDS: Acetaminophen IV 1,000 MG/100 ML BAG IVPB SCH ×3 (01:28→13:59)
[2020-07-05] MEDS: Pantoprazole 40 MG in 0.9 % Sodium Chloride Mini Bag 100 ML IVC SCH ×3 (05:13→10:34)
[2020-07-05] MEDS: *HR* Heparin 5,000 UNIT/ML VIAL SQ SCH ×2 (05:14→13:58)
[2020-07-05] MEDS: Ondansetron 4 MG/2 ML VIAL IVP PRN (05:22)
[2020-07-05] MEDS ORDERED: *HR* Dextrose 50 % in Water (Vial) 50 ML VIAL IVP PRN (07:39)
[2020-07-05] MEDS ORDERED: D5% in Water 1,000 ML IVC PRN (07:39)
[2020-07-05] MEDS ORDERED: Dextrose Gel 15 GM/37.5 ML TUBE PO PRN ×2 (07:39)
[2020-07-05] MEDS: Tiotropium 10 INH DOSE IH SCH (08:18)
[2020-07-05] MEDS: ALPRAZolam 1 MG TABLET PO SCH (10:34)
[2020-07-05] MEDS: Gabapentin 300 MG CAPSULE PO SCH (10:35)
[2020-07-05] MEDS: Multivit/Ca/Min/Fe/FA 1 TAB TABLET PO SCH (10:37)
[2020-07-05 11:04] LABS: Hematocrit 38.1 % (35.3-44.9); Hemoglobin 12.2 g/dL (11.5-15.4); Mean Corpuscular Hemoglobin 28.8 pg (28.0-33.3); Mean Corpuscular Volume 90.1 fL (83.0-100.0); Mean Platelet Volume 10.7 fL (9.4-12.4); Platelet Count 251 K/mcL (140-400); Red Blood Count 4.23 M/mcL (3.82-4.97); Red Cell Distribution Width 15.6 % (11.5-14.5); White Blood Count 7.2 K/mcL (4.3-11.1)
[2020-07-05 11:07] VITALS: BP 93/64
[2020-07-05 11:15] LABS: Estimated Average Glucose 131 mg/dl; Hemoglobin A1C 6.2 %
[2020-07-05 11:25] LABS: BUN/Creatinine Ratio 23 (6-26); Blood Urea Nitrogen 18 mg/dL (8-23); Calcium 8.6 mg/dL (8.6-10.3); Carbon Dioxide 24 mEq/L (23-29); Chloride 105 mEq/L (98-107); Glucose 115 mg/dL (70-105); Magnesium 1.6 mg/dL (1.6-2.6); Osmolality,Calculated 281 (280-300); Phosphorous 3.8 mg/dL (2.7-4.5); Sodium 134 mEq/L (136-145); eGFR For African Americans > 60 (> 60); eGFR For Non-African Americans > 60 (> 60)
[2020-07-05] MEDS ORDERED: *HR* HYDROmorphone (PF) 1 MG/ML SYRINGE IVP ONE (12:52)
[2020-07-05] MEDS ORDERED: Clinimix E 5%-15% SOLUTION 2,000 ML with MVI, adult with vitamin K 10 ML, Potassium A... IVC SCH (17:00)
== END 2020-07-05 17:02 | disposition home health service (06) | DRG 243 ==
LOC: 3ANU 16:03 → EMEROOARM 16:03 → SUATTDRO 21:41 → 3ANU 22:04
PROVIDERS: ADMIT Family Medicine; ATTEND Internal Medicine

== ENCOUNTER 2021-10-26 11:46 | Observation (INO) ==
[2021-10-26] MEDS ORDERED: Iopamidol - 370 500 ML MLS IVP ONE (12:20)
[2021-10-26] MEDS ORDERED: Morphine Sulfate 2 MG/ML SYRINGE IVP ONE ×3 (12:23→20:13)
[2021-10-26] MEDS ORDERED: 0.9 % Sodium Chloride 1,000 ML IV ONE (12:41)
[2021-10-26 13:37] LABS: Basophils % 0.2 %; Eosinophils # 0.1 K/mcL (0.0-0.6); Eosinophils % 0.9 %; Hematocrit 32.8 % (35.3-44.9); Hemoglobin 10.2 g/dL (11.5-15.4); Immature Granulocytes % 0.7 % (0-4); Lymphocytes # 1.2 K/mcL (0.6-4.6); Mean Corpuscular HGB Conc 31.1 g/dL (31.6-35.5); Mean Corpuscular Hemoglobin 24.3 pg (28.0-33.3); Mean Corpuscular Volume 78.3 fL (83.0-100.0); Mean Platelet Volume 10.4 fL (9.4-12.4); Monocytes % 7.1 %; Platelet Count 831 K/mcL (140-400); Red Blood Count 4.19 M/mcL (3.82-4.97); Red Cell Distribution Width 17.1 % (11.5-14.5); Segmented Neutrophils % 83.1 %; White Blood Count 14.4 K/mcL (4.3-11.1)
[2021-10-26 14:39] LABS: Alanine Aminotransferase 17 Units/L (7-52); Albumin 3.5 g/dL (3.5-5.7); Albumin/Globulin Ratio 0.8 (1.1-2.2); Alkaline Phosphatase 66 Units/L (34-104); Aspartate Amino Transferase 14 Units/L (13-39); BUN/Creatinine Ratio 17 (6-26); Bilirubin,Total 0.5 mg/dL (0.3-1.0); Blood Urea Nitrogen 14 mg/dL (8-23); Calcium 9.6 mg/dL (8.6-10.3); Carbon Dioxide 21 mEq/L (23-29); Chloride 97 mEq/L (98-107); Globulin 4.5 g/dL (2.4-3.5); Glucose 100 mg/dL (70-105); Lipase 37 Units/L (11-82); Osmolality,Calculated 275 (280-300); Potassium 2.6 mEq/L (3.5-5.1); Sodium 132 mEq/L (136-145); eGFR For African Americans > 60 (> 60); eGFR For Non-African Americans > 60 (> 60)
[2021-10-26] MEDS ORDERED: Potassium Chloride Elixir 20 MEQ/15 ML UDC PO ONE (14:52)
[2021-10-26] MEDS ORDERED: Piperacillin/Tazobactam 3.375 GM in 0.9 % Sodium Chloride Mini Bag 100 ML IVPB ONE (15:28)
[2021-10-27] MEDS ORDERED: 0.9 % Sodium Chloride 1,000 ML IV ONE (01:18)
[2021-10-27] MEDS ORDERED: Ondansetron 4 MG/2 ML VIAL IVP PRN (01:56)
[2021-10-27] MEDS ORDERED: Melatonin 3 MG TABLET PO PRN (01:56)
[2021-10-27] MEDS ORDERED: Naloxone 0.4 MG/ML INJ IVP PRN (01:56)
[2021-10-27] MEDS: Piperacillin/Tazobactam 3.375 GM in 0.9 % Sodium Chloride Mini Bag 100 ML IVPB SCH ×2 (02:17→09:25)
[2021-10-27] MEDS ORDERED: ALPRAZolam 1 MG TABLET PO PRN (02:17)
[2021-10-27] MEDS: 0.9 % Sodium Chloride 1,000 ML IVC SCH ×2 (03:08→14:10)
[2021-10-27] MEDS: Pantoprazole 40 MG VIAL IVP SCH ×2 (03:31→16:24)
[2021-10-27 05:59] LABS: Basophils # 0.1 K/mcL (0.0-0.2); Basophils % 0.7 %; Eosinophils # 0.4 K/mcL (0.0-0.6); Eosinophils % 3.1 %; Hematocrit 28.7 % (35.3-44.9); Hemoglobin 8.7 g/dL (11.5-15.4); Immature Granulocytes % 0.5 % (0-4); Lymphocytes # 1.1 K/mcL (0.6-4.6); Lymphocytes % 9.5 %; Mean Corpuscular HGB Conc 30.3 g/dL (31.6-35.5); Mean Corpuscular Hemoglobin 24.4 pg (28.0-33.3); Mean Corpuscular Volume 80.4 fL (83.0-100.0); Mean Platelet Volume 10.2 fL (9.4-12.4); Monocytes % 8.5 %; Neutrophils # 9.1 K/mcL (1.6-8.9); Platelet Count 694 K/mcL (140-400); Red Blood Count 3.57 M/mcL (3.82-4.97); Red Cell Distribution Width 17.4 % (11.5-14.5); Segmented Neutrophils % 77.7 %; White Blood Count 11.7 K/mcL (4.3-11.1)
[2021-10-27 06:35] LABS: Alanine Aminotransferase 13 Units/L (7-52); Albumin/Globulin Ratio 0.9 (1.1-2.2); Alkaline Phosphatase 52 Units/L (34-104); Aspartate Amino Transferase 11 Units/L (13-39); BUN/Creatinine Ratio 15 (6-26); Bilirubin,Total 0.4 mg/dL (0.3-1.0); Blood Urea Nitrogen 11 mg/dL (8-23); Calcium 8.4 mg/dL (8.6-10.3); Carbon Dioxide 19 mEq/L (23-29); Chloride 110 mEq/L (98-107); Globulin 3.5 g/dL (2.4-3.5); Glucose 97 mg/dL (70-105); Magnesium 1.9 mg/dL (1.6-2.6); Osmolality,Calculated 283 (280-300); Potassium 3.4 mEq/L (3.5-5.1); Sodium 137 mEq/L (136-145); Total Protein 6.5 g/dL (6.4-8.9); eGFR For African Americans > 60 (> 60); eGFR For Non-African Americans > 60 (> 60)
[2021-10-27] MEDS: Gabapentin 300 MG CAPSULE PO SCH ×3 (08:07→14:17)
[2021-10-27] MEDS ORDERED: *HR* HYDROmorphone (PF) 1 MG/ML SYRINGE IVP ONE (10:57)
[2021-10-27 11:15] VITALS: O2SAT 93
[2021-10-27] MEDS ORDERED: *HR* HYDROmorphone (PF) 1 MG/ML SYRINGE IVP PRN (13:43)
[2021-10-27] MEDS ORDERED: Budesonide/Formoterol 160/4.5 1 PUFF INH IH PRN (15:05)
[2021-10-27 15:33] VITALS: BP 114/80; PULSE 83; TEMP 98
[2021-10-28] MEDS ORDERED: Tiotropium 10 INH DOSE IH SCH (10:00)
== END 2021-10-27 18:35 | disposition short-term general hospital (02) ==
LOC: 3ANU 11:46 → EMEROOARM 11:46 → 3ANU 10-27 02:20
PROVIDERS: ADMIT Internal Medicine; ATTEND Internal Medicine